=== PATIENT | female | born 1960 | race Caucasian/White ===

== ENCOUNTER → 2021-05-20 | Outpatient (CLI) | payer BC ==
[2015-05-12 11:00] VITALS: BP 100/43
[~2021-05-20] MED LIST: ACET325T9 PO; ALPR0.25 PO; ATOR20TA PO; AZIT250T6 PO; CIPR500T2 PO; DEXL60CA2 PO; DULO30CA2 PO; FLUT9.9S NS; HYDR-2761 PO; IOHEXOL 180 MG/ML 10 ML VIAL. ONE; LISI10TA16 PO; METR-34 PO; MOME17SP NS; Nicotine TD; OMEP40CA7 PO; methylPREDNISolone ACETATE 40 MG/ML VIAL. ONE; methylPREDNISolone ACETATE 80 MG/ML VIAL. ONE
--- NOTE | 2021-05-20 12:46 | RAD ---
EXAM: Bilateral knees, 3 views. HISTORY: Pain. COMPARISON: None. FINDINGS: 3 views of both knees are obtained. There is no fracture, dislocation or subluxation. There is no joint effusion. IMPRESSION: No acute osseous finding. Electronically signed by: Grace Navarro MD (05/20/2021 12:44 PM) [id number]
--- NOTE | 2021-05-20 12:53 | PDOC1 ---
INITIAL PAIN CONSULT DATE OF SERVICE: DOS: DATE: 05/20/21 TIME: 12:47 CHIEF COMPLAINT: Chief Complaint: Low back and left lower extremity pain HISTORY OF PRESENT ILLNESS: 60-year-old female presents with severe pain in the low back left lower extremity for about 5 years not the result of any specific injury or accident that she is aware but has had multiple falls and injuries over the years causing the pain to get increased in the low back and left lower extremity patient reports now it is worse in the posterior gluteus posterior lateral thigh lateral anterior thigh anteromedial thigh medial lower leg posterior lower leg into the foot on the left side patient reports its constant sharp stabbing throbbing and shooting in the back radiating the leg with numbness and tingling in the leg and foot on the left side only cramping aching and burning worse during the latter part of the leg which is been on her feet also wakes her from sleep multiple times through the night patient reports it can affect her bowel bladder control but no incontinence just increased frequency does affect her ability to walk significantly she not use any assistive devices. Patient reports she said chiropractic treatment physical therapy, and is doing exercise currently without significant reduction in pain although they do help decrease the pain slightly patient reports he taken Tylenol as well as Cymbalta the Cymbalta was not helpful Tylenol does decrease the pain she took that last yesterday evening. Patient rates her disability rating 0-10 10 being the worst is an 8 with family responsibilities 10 with recreation social activity and sexual behavior 9 with occupation 5 with self-care and life support activities specially sleeping. Patient reports about 3 to 4 weeks ago she had a "pop" in her low back and the pain in the back was better but the right leg was more painful during that time period. Patient reports significant fatigability left lower extremity but no motor loss. Patient reports no bowel or bladder incontinence. PAST MEDICAL HISTORY: PMH: Hypertension, ischemic colitis PREVIOUS SURGERIES: Past Surgical Hx: Cholecystectomy CURRENT MEDICATIONS: Current Meds: Active Scripts Medications Dose Route/Sig Max Daily Dose Days Date Category Flonase Allergy Relief (Fluticasone Propionate) 9.9 Ml [place].susp 2 Sprays NS DAILY 05/20/21 Reported Cymbalta (Duloxetine Hcl) 30 Mg Capsule.dr 1 Cap PO DAILY 05/20/21 Reported Lipitor (Atorvastatin Calcium) 20 Mg Tablet 20 Mg PO QHS 05/12/15 Rx Lisinopril 10 Mg Tablet 1 Tab PO DAILY 05/11/15 Reported Xanax (Alprazolam) 0.25 Mg Tablet 1 Tab PO BID 05/11/15 Reported Tylenol (Acetaminophen) 325 Mg Tablet 1-2 Tab PO QID 05/11/15 Reported ALLERGIES; Allergies: Coded Allergies: Penicillins (Verified Allergy, Intermediate, 03/06/14) aspirin (Verified Allergy, Intermediate, 03/06/14) doxycycline (Verified Allergy, Intermediate, 03/06/14) FAMILY HISTORY: Family Hx: Heart disease, cancers, multiple sclerosis SOCIAL HISTORY: Social Hx: Patient does not drink alcohol does not use any illegal illicit recreational drugs smokes cigarettes and has for about 40 years continues to smoke less than a pack a day. Patient is lives locally in [facility] REVIEW OF SYSTEMS: ROS: Positive for those items mentioned in history of present illness, all systems are reviewed, otherwise negative ,and are complete full and well-documented on patient's chart. PHYSICAL EXAM: VS: Blood pressure is 118/65 pulse 83 respirations 18 temperature 97.8 F height is 5 feet 5 inches weight 168 pounds PE: PHYSICAL EXAMINATION: GENERAL: The patient is awake, alert, oriented, appropriate, very pleasant in demeanor HEENT: Shows normocephalic, atraumatic. Extraocular movements are intact and sy mmetrical. Oral cavity: Mucous membranes moist and pink. Dentition is intact. NECK: Shows anterior throat supple without palpable lymphadenopathy noted. Swallow reflex symmetrical. CHEST: Shows normal on inspection. Breath sounds are clear bilaterally, coarse but no rales or rhonchi auscultated. HEART: Shows S1, S2 clear. No murmurs auscultated. ABDOMEN: Soft, nontender, nondistended, obese. No palpable organomegaly is noted. BACK: Shows spine grossly in the midline. Normal-appearing cervical lordotic curvature. There is slightly increased thoracic kyphosis, some flattening of the lumbar lordotic curvature. Lumbar paraspinous muscles show symmetrical on inspection, on palpation shows some moderate tenderness diffusely throughout the upper, middle and lower distribution of the paraspinous muscles bilaterally and also into the lower thoracic paraspinous musculature, firm and tender, but without specific trigger points, without radiation of pain. The patient has good rotational motion of the lumbar spine, both laterally as well as extension and flexion without significant difficulty. No tenderness over the spinous processes, sacrum or sacroiliac regions. EXTREMITIES: Lower extremities show deep tendon reflexes 2+ in the patellar and tendo calcaneus tendons. Motor exam is 2+ on a scale of 5 with right dorsiflexion, extension, quadriceps and hamstring flexion and 4/5 on the left. Peripheral pulses are 1+ posterior tibial. No peripheral edema is noted bilaterally. Lower extremities are warm and dry to touch, equal in color and appearance. Straight leg raise noted to be positive on the left approximate 45 degrees, decreased with knee flexion right side is negative. Gaenslen's and Galindo's maneuvers are negative bilaterally. The patient is able to stand, stand her toes without significant difficulty no loss of balance walks with a slight favoring gait does appear to favor the left lower extremity slightly but not use any assistive devices such as canes or walkers to ambulate. SKIN: Shows warm and dry, good turgor. No edema. No sores, rashes or bruising throughout. IMPRESSION: Impression: 60-year-old female with 5-year history low back left lower extremity pain in a radicular fashion Hypertension Cigarette smoking Hearing loss Plan: Options were discussed with patient including serve medical managements physical therapies interventional techniques. Patient like to pursue interventional techniques. We discussed a lumbar epidural steroid injection using description as well as anatomical models to describe the procedure. Risks were discussed including but not limited to: Bleeding, infection, possibility of epidural hematoma and subsequent neurological compromise, dural puncture, headaches, spinal cord and/or nerve damage, side effects of steroid medication, and poor results regarding pain control. Patient understands and wished to proceed. Patient return to clinic in approximate 2 weeks for follow-up, was counseled as to return appointment activity level and side effect to be aware of. Procedure is lumbar epidural steroid injection under local anesthetic using sterile prep and drape at the L4-5 level using C-arm fluoroscopic guidance in both AP and lateral views medications injected is 120 mg Depo-Medrol +10mL preservative-free normal saline and 2 mL contrast- condition at discharge is stable patient tolerated procedure well had no complications. PATY WEBB MD May 20, 2021 12:53
--- NOTE | 2021-05-20 12:54 | PDOC4 ---
Procedure Note: ICD 10 Code: ICD 10 Code: M54.16 M51.36 Procedure Note: Patient was consented for lumbar epidural steroid injection with fluoroscopic guidance. Risks were discussed including but not limited to: Bleeding, infection, possibility of epidural hematoma and subsequent neurological compromise, dural puncture, headaches, spinal cord and/or nerve damage, side effects of steroid medication, and poor results regarding pain control. Patient understands and wished to proceed. Procedure is lumbar epidural steroid injection under local anesthetic using sterile prep and drape at the L4-5 level using C-arm fluoroscopic guidance in both AP and lateral views medications injected is 120 mg Depo-Medrol +10mL preservative-free normal saline and 2 mL contrast- condition at discharge is stable patient tolerated procedure well had no complications. PATY WEBB MD May 20, 2021 12:54
== END | disposition home or self-care (01) ==
LOC: PNCL 10:18
PROVIDERS: ATTEND Anesthesiology
DX: M51.16 Intervertebral disc disorders with radiculopathy, lumbar region (principal); M25.561 Pain in right knee; M25.562 Pain in left knee; I10 Essential (primary) hypertension; K55.9 Vascular disorder of intestine, unspecified; E78.00 Pure hypercholesterolemia, unspecified; K21.9 Gastro-esophageal reflux disease without esophagitis; F41.9 Anxiety disorder, unspecified; F32.9 Major depressive disorder, single episode, unspecified; F17.210 Nicotine dependence, cigarettes, uncomplicated; Z79.899 Other long term (current) drug therapy; Z90.49 Acquired absence of other specified parts of digestive tract; Z98.890 Other specified postprocedural states; Z88.0 Allergy status to penicillin; Z88.1 Allergy status to other antibiotic agents; Z88.8 Allergy status to other drugs, medicaments and biological substances; Z72.89 Other problems related to lifestyle
CPT/HCPCS: 62323; 73562; J1030; J1040; Q9965

== ENCOUNTER → 2021-06-22 | Outpatient (CLI) | payer BC ==
[2015-05-12 11:00] VITALS: BP 100/43
[~2021-06-22] MED LIST changes: -MOME17SP NS; +MOME17SP5 NS
--- NOTE | 2021-06-22 12:05 | PDOC4 ---
Procedure Note: ICD 10 Code: ICD 10 Code: M54.16 M51.36 Procedure Note: Patient was consented for lumbar epidural steroid injection fluoroscopic guidance. Risks were discussed including but not limited to: Bleeding, infection, possibility of epidural hematoma and subsequent neurological compromise, dural puncture, headaches, spinal cord and/or nerve damage, side effects of steroid medication, and poor results regarding pain control. Patient understands and wished to proceed. Procedure is lumbar epidural steroid injection under local anesthetic using sterile prep and drape at the L4-5 level using C-arm fluoroscopic guidance in both AP and lateral views medications injected is 120 mg Depo-Medrol +10mL preservative-free normal saline and 2 mL contrast- condition at discharge is stable patient tolerated procedure well had no complications. PATY WEBB MD Jun 22, 2021 12:05
--- NOTE | 2021-06-22 12:05 | PDOC ---
Progress Note - Pain Clinic Date of Service: DOS: DATE: 06/22/21 TIME: 12:01 Diagnosis: Dx: Lumbar radiculopathy with lumbar degenerative disc disease History or Present Illness: HPI: 60-year-old female returns with back pain low back left lower extremity which is tight in the posterior gluteus posterior thigh lateral thigh anterior thigh medial thigh into the medial knee patient reports much better after last injection which was just over a month ago about 70% improvement for a few weeks significantly she was increase in activity with greater ease and comfort walking greater distances doing household activities activities try with greater ease co mfort as well as sleeping better at night reports currently is waking her from sleep about every 2-3 hours. Patient reports her pain is returning to fairly significant amount in the left knee is very painful we did get some plain films on the knees which showed no osseous abnormalities. Patient reports her pain is a 10 on scale 10 is worse with the past week 9 on average 7 its least is a 9 today is aching sharp tight shooting in the back tingling and burning the leg cramping and stabbing as well patient reports no bowel or bladder incontinence no loss of motor function with significant fatigability of the left lower extremity. Physical Exam: VS: Blood pressure is 137/85 pulse 91 respirations 18 temperature 98.2 F weight is 171 pounds PE: PHYSICAL EXAMINATION: GENERAL: The patient is awake, alert, oriented, appropriate, very pleasant in demeanor HEENT: Shows normocephalic, atraumatic. Extraocular movements are intact and symmetrical. Oral cavity: Mucous membranes moist and pink. Dentition is intact. NECK: Shows anterior throat supple without palpable lymphadenopathy noted. Swallow reflex symmetrical. CHEST: Shows normal on inspection. Breath sounds are clear bilaterally, distant but no rales or rhonchi. HEART: Shows S1, S2 clear. No murmurs auscultated. ABDOMEN: Soft, nontender, nondistended, obese. No palpable organomegaly is noted. BACK: Shows spine grossly in the midline. Normal-appearing cervical lordotic curvature. There is increased thoracic kyphosis, some flattening of the lumbar lordotic curvature. Lumbar paraspinous muscles show symmetrical on inspection, on palpation shows some moderate tenderness diffusely throughout the upper, middle and lower distribution of the paraspinous muscles, but without specific trigger points, without radiation of pain. The patient has good rotational motion of the lumbar spine, both laterally as well as extension and flexion without significant difficulty. No tenderness over the spinous processes, sacr um or sacroiliac regions. EXTREMITIES: Lower extremities show deep tendon reflexes 2+ in the patellar and tendo calcaneus tendons. Motor exam is 5 on a scale of 5 with right dorsiflexion, extension, quadriceps and hamstring flexion and 4/5 on the left. Peripheral pulses are 1+ posterior tibial. No peripheral edema is noted bilaterally. Lower extremities are warm and dry. SKIN: Shows warm and dry, good turgor. No edema. No sores, rashes or bruising throughout. Procedure: Procedure: Options were discussed with the patient. Patient's old chart was reviewed as her current medication regimen updated current review of systems updated today as well. We will proceed with a lumbar epidural steroid injection today with fluoroscopic guidance. Risks were discussed including but not limited to: Bleeding, infection, possibility of epidural hematoma and subsequent neurological compromise, dural puncture, headaches, spinal cord and/or nerve damage, side effects of steroid medication, and poor results regarding pain control. Patient understands and wished to proceed. Patient will return to the clinic in approximately 2 weeks for follow-up, was counseled as to return appointment activity level, and side effect to be aware of. Medication Injected: Med Injected: Procedure is lumbar epidural steroid injection under local anesthetic using sterile prep and drape at the L4-5 level using C-arm fluoroscopic guidance in both AP and lateral views medications injected is 120 mg Depo-Medrol +10mL preservative-free normal saline and 2 mL contrast- condition at discharge is stable patient tolerated procedure well had no complications. Condition at Discharge: Condition at Discharge: Condition at discharge stable, paced tolerated procedure well and had no complications. PATY WEBB MD Jun 22, 2021 12:04
== END | disposition home or self-care (01) ==
LOC: PNCL 10:42
PROVIDERS: ATTEND Anesthesiology
DX: M51.16 Intervertebral disc disorders with radiculopathy, lumbar region (principal); I10 Essential (primary) hypertension; E78.00 Pure hypercholesterolemia, unspecified; K21.9 Gastro-esophageal reflux disease without esophagitis; F41.9 Anxiety disorder, unspecified; F32.9 Major depressive disorder, single episode, unspecified; F17.210 Nicotine dependence, cigarettes, uncomplicated; Z79.899 Other long term (current) drug therapy; Z90.49 Acquired absence of other specified parts of digestive tract; Z98.890 Other specified postprocedural states; Z88.0 Allergy status to penicillin; Z88.1 Allergy status to other antibiotic agents; Z88.8 Allergy status to other drugs, medicaments and biological substances; Z72.89 Other problems related to lifestyle
CPT/HCPCS: 62323; J1030; J1040; Q9965

== ENCOUNTER → 2021-08-17 | Outpatient (CLI) | payer BC ==
[2015-05-12 11:00] VITALS: BP 100/43
[~2021-08-17] MED LIST changes: -IOHEXOL 180 MG/ML 10 ML VIAL. ONE; -methylPREDNISolone ACETATE 40 MG/ML VIAL. ONE; -methylPREDNISolone ACETATE 80 MG/ML VIAL. ONE
--- NOTE | 2021-08-17 14:50 | KCIC ---
EXAM: Lumbar spine MRI without contrast. HISTORY: Sciatica. Bilateral lower extremity numbness and pain. TECHNIQUE: Multiplanar, multisequence magnetic resonance imaging of the lumbar spine was performed wi thout contrast. COMPARISON: CT dated 03/05/2014. 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 No convincing spinal cord signal abnormality is seen on the [id number]. There is no clear bony remodeling. There is slight retrolisthesis of L2 on L3 and L3 on L4. There is multilevel endplate remodeling. The re are few endplate Schmorl's nodes. There are few bone islands and osseous hemangiomas. There is no suspicious osseous lesion. The conus terminates at L1. There is a tiny simple left renal cyst. Follow -up is not routinely performed for simple cysts. At T11-T12, there is a minimal disc bulge and endplate remodeling. There is no stenosis. At T12-L1, there is no stenosis. At L1-L2, there is no stenosis. At L2-L3, there is mild disc bulge and endplate remodeling. There is no stenosis. At L3-L4, there is a mild disc bulge and endplate remodeling. There is mild bilateral facet arthropat hy. There is mild retrolisthesis. There is mild right foraminal stenosis. At L4-L5, there is a minimal disc bulge and endplate remodeling. There is no stenosis. At L5-S1, there is a minimal posterior central disc protrusion. There is no stenosis. IMPRESSION: 1. 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 This results in severe central canal stenosis with r ightward deviation of the distal spinal cord. Evaluation with a dedicated thoracic spine MRI with and without contrast is recommended for characterization. 2. Degenerative change involving the lower thoracic and lumbar spine, described in detail above. This is associated with mild right foraminal stenosis at L3-L4. Electronically signed by: Grace Navarro MD (08/17/2021 2:48 PM) [id number]
== END ==
LOC: KCIC MRI 09:53
PROVIDERS: ATTEND Family Medicine
DX: M47.815 Spondylosis without myelopathy or radiculopathy, thoracolumbar region (principal); M48.8X4 Other specified spondylopathies, thoracic region; M48.04 Spinal stenosis, thoracic region; M48.061 Spinal stenosis, lumbar region without neurogenic claudication; M43.16 Spondylolisthesis, lumbar region; M48.8X6 Other specified spondylopathies, lumbar region; M51.26 Other intervertebral disc displacement, lumbar region; N28.1 Cyst of kidney, acquired; D18.09 Hemangioma of other sites; M51.46 Schmorl's nodes, lumbar region
CPT/HCPCS: 72148

== ENCOUNTER → 2021-08-25 | Outpatient (CLI) | payer BC ==
[2015-05-12 11:00] VITALS: BP 100/43
--- NOTE | 2021-08-25 15:01 | PDOC ---
Progress Note - Pain Clinic Date of Service: DOS: DATE: 08/25/21 TIME: 14:58 Diagnosis: Dx: Lumbar radiculopathy lumbar degenerative disc disease History or Present Illness: HPI: 60-year-old female returns for follow-up status post lumbar epidural steroid injection last seen June 22, 2021 patient reports she did well initially with about 70% improvement with pain returning down the low back and especially left lower extremity patient did have a new MRI scan which was ordered by her primary care physician we reviewed that with her today showing an extra medullary mass at the central canal at T11 measuring 2.6 cm in maximum dimension resulting in severe central canal stenosis with a rightward deviation of the distal spinal cord recommending evaluation with contrast and without for thoracic MRI which we will order for her. Patient reports still pain in the mid back low back and into the left lower extremity most significantly in the posterior thigh lateral thigh anterior thigh medial thigh groin into the medial lower leg and into the foot patient reports is worse with walking standing change positions better with sitting or laying down the pain is 8 on scale 10 is worst over the past week 6 on average 4 to [place] is a 6 today patient describes aching shooting and constant in the leg and back with ambulation and standing. Patient reports no bowel or bladder incontinence. Physical Exam: VS: Blood pressure is 126/79 pulse 93 respirations 18 temperature 98.4 F height 5 feet 5 inches weight is 173 pounds. PE: PHYSICAL EXAMINATION: GENERAL: The patient is awake, alert, oriented, appropriate, very pleasant in demeanor, patient accompanied by her . HEENT: Shows normocephalic, atraumatic. Extraocular movements are intact and symmetrical. Oral cavity: Mucous membranes moist and pink. Dentition is intact. NECK: Shows anterior throat supple without palpable lymphadenopathy noted. Swallow reflex symmetrical. CHEST: Shows normal on inspection. Breath sounds are clear bilaterally, distant but no rales or rhonchi auscultated. HEART: Shows S1, S2 clear. No murmurs auscultated. ABDOMEN: Soft, nontender, nondistended. No palpable organomegaly is noted. No rebound or guarding demonstrated. BACK: Shows spine grossly in the midline. Normal-appearing cervical lordotic curvature. There is slightly increased thoracic kyphosis, some minor flattening of the lumbar lordotic curvature. Lumbar paraspinous muscles show symmetrical on inspection, on palpation shows some moderate tenderness diffusely throughout the upper, middle and lower distribution of the paraspinous muscles without specific trigger points, without radiation of pain. The patient has good rotational motion of the lumbar spine, both laterally as well as extension and flexion without significant difficulty. No tenderness over the spinous processes, sacrum or sacroiliac regions. EXTREMITIES: Lower extremities show deep tendon reflexes 2+ in the patellar and tendo calcaneus tendons. Motor exam is 5 on a scale of 5 with right dorsiflexion, extension, quadriceps and hamstring flexion and 4/5 on the left. Peripheral pulses are 1+ posterior tibial. 1+ peripheral edema is noted bilaterally. Lower extremities are warm and dry. SKIN: Shows warm and dry, good turgor. No edema. No sores, rashes or bruising throughout. Procedure: Procedure: Options were discussed with patient. Patient's old chart was reviewed as was her current medication regimen updated current review of systems updated today as well. We will proceed with ordering of MRI of thoracic spine with and without contrast as per recommendation for evaluation of T11 extra medullary mass. Patient will follow up once MRI scan is completed for discussion and further plan at that time Medication Injected: Med Injected: None Condition at Discharge: Condition at Discharge: Condition at discharge is stable. PATY WEBB MD Aug 25, 2021 15:01
== END | disposition home or self-care (01) ==
LOC: PNCL 13:21
PROVIDERS: ATTEND Anesthesiology
DX: M51.16 Intervertebral disc disorders with radiculopathy, lumbar region (principal); I10 Essential (primary) hypertension; E78.00 Pure hypercholesterolemia, unspecified; K21.9 Gastro-esophageal reflux disease without esophagitis; F41.9 Anxiety disorder, unspecified; F32.9 Major depressive disorder, single episode, unspecified; F17.210 Nicotine dependence, cigarettes, uncomplicated; Z90.49 Acquired absence of other specified parts of digestive tract; Z98.890 Other specified postprocedural states; Z79.899 Other long term (current) drug therapy; Z72.89 Other problems related to lifestyle; Z88.0 Allergy status to penicillin; Z88.1 Allergy status to other antibiotic agents; Z88.8 Allergy status to other drugs, medicaments and biological substances
CPT/HCPCS: 99212; G0463

== ENCOUNTER → 2021-09-01 | Outpatient (CLI) | payer BC ==
[2015-05-12 11:00] VITALS: BP 100/43
[~2021-09-01] MED LIST changes: +GADOTERATE 7.5 MMOL/15ML VIAL. IVP ONE
--- NOTE | 2021-09-01 11:30 | KCIC ---
MRI thoracic spine without and with contrast Contrast: 14 mL Clariscan gadolinium intravenous contrast. HISTORY: Thoracic spinal mass. Sciatica. Bilateral lower extremity numbness and pain. COMPARISON: MRI lumbar spine August 17, 2021 FINDINGS: Thoracic vertebral body height and alignment is intact. Diffuse degenerative disc desiccati on and disc height loss throughout the thoracic spine there is some scattered shallow disc bulges at the mid to lower thoracic spine. These contribute and no spinal canal or neural foraminal stenosis. At the T10 and T11 vertebral level there is a intradural extramedullary heterogeneous T2 weighted hyp erintense solid mass with hypervascular contrast enhancement there are some tiny areas of absent cont rast enhancement internally which could represent some areas of cystic degeneration or necrosis of th e mass. The mass fills most of the dural sac and displaces the thoracic spinal cord to the right whic h is markedly compressed and deformed along the right lateral dural sac with a thickness of the spina l cord down to 2 to 3 mm. The mass measures 3.1 cm craniocaudal by 1.5 cm transverse by 1.3 cm AP. Th ere is no obvious enhancing dural tail of this mass to confirm an origin from the dura, the mass has broad areas of contact circumferentially about the dural sac. No additional intradural masses evident or thickened dura or leptomeningeal enhancement. No osseous masses of the thoracic spine. No syringo hydromyelia of the thoracic spinal cord above or below the mass evident. Conus terminates at the L1 l umbar vertebral level. IMPRESSION: 1. 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 This mass displaces the spin al cord to the right which is compressed and markedly deformed compressed by the mass. This may repre sent a large peripheral nerve sheath tumor. A meningioma is a secondary consideration although there is no definite dural base of attachment by this mass, the mass does have extensive contact with the s urrounding dural sac. An intradural extramedullary metastatic mass lesion is also a possibility. Give n that this mass does not involve the conus and is not centrally located within the spinal cord, an e pendymoma or hemangioblastoma is felt to be much less likely. 2. Thoracic degenerative disc disease. No spinal canal stenosis. See above. Electronically signed by: Wero Grace MD (09/01/2021 11:27 AM) [email or web address]
== END | disposition home or self-care (01) ==
LOC: KCIC MRI 08:42
PROVIDERS: ATTEND Anesthesiology
DX: M54.32 Sciatica, left side (principal); M54.31 Sciatica, right side; M51.34 Other intervertebral disc degeneration, thoracic region; I10 Essential (primary) hypertension; E78.00 Pure hypercholesterolemia, unspecified; K21.9 Gastro-esophageal reflux disease without esophagitis; F41.9 Anxiety disorder, unspecified; F32.9 Major depressive disorder, single episode, unspecified; F17.210 Nicotine dependence, cigarettes, uncomplicated; Z90.49 Acquired absence of other specified parts of digestive tract; Z98.890 Other specified postprocedural states; Z72.89 Other problems related to lifestyle; Z88.0 Allergy status to penicillin; Z88.1 Allergy status to other antibiotic agents; Z88.8 Allergy status to other drugs, medicaments and biological substances
CPT/HCPCS: 72157; A9575

== ENCOUNTER → 2021-09-04 | Outpatient (CLI) | payer BC ==
[2015-05-12 11:00] VITALS: BP 100/43
[~2021-09-04] MED LIST changes: -GADOTERATE 7.5 MMOL/15ML VIAL. IVP ONE; +METH4TAB6 PO; +VENTOLIN HFA18 GM INH
--- NOTE | 2021-09-04 14:24 | EKG ---
[facility] [address] [place] [address] Test Date: 2021-09-04 Test Time: 14:24:46 Pat Name: RATNA SALAS Department: Room: Gender: F Equine Breeder: KYRA : 1960 Requested By: JAQUELINE ESCAMILLA Order Number: [id number] Reading MD: Raffi Whalen MD Measurements Intervals [place] Rate: 86 P: 21 NM: 174 QRS: 55 QRSD: 86 T: 51 QT: 334 QTc: 402 Interpretive Statements SINUS RHYTHM Electronically Signed On 09-07-2021 9:45:32 [employer]LLSTAND ATTENDANT by Raffi Whalen MD
[2021-09-04 14:37] LABS: BASO # 0.2 x10^3/uL (0.0-0.2); BASO % 1 % (0-3); EOS % 0 % (0-3); HEMATOCRIT 45.5 % (36.0-47.0); HEMOGLOBIN 14.7 g/dL (12.0-15.5); LYMPH # 3.2 x10^3/uL (1.0-4.8); LYMPH % 16 % (24-48); MEAN CORPUSCULAR HEMOGLOBIN 30 pg (25-35); MEAN CORPUSCULAR HGB CONC 32 g/dL (31-37); MEAN CORPUSCULAR VOLUME 92 fL (79-100); MONO # 0.9 x10^3/uL (0.0-1.1); MONO % 5 % (0-9); NEUT # 15.3 x10^3/uL (1.8-7.7); NEUT % 78 % (31-73); PLATELET COUNT 484 x10^3/uL (140-400); RED BLOOD COUNT 4.92 x10^6/uL (3.50-5.40); RED CELL DISTRIBUTION WIDTH 14.9 % (11.5-14.5); WHITE BLOOD COUNT 19.6 x10^3/uL (4.0-11.0)
[2021-09-04 14:46] LABS: PROTHROMBIN TIME PATIENT 12.4 SEC (11.7-14.0)
[2021-09-04 14:50] LABS: ALBUMIN 3.5 g/dL (3.4-5.0); ALBUMIN/GLOBULIN RATIO 0.9 (1.0-1.7); CALCIUM 9.2 mg/dL (8.5-10.1); CREATININE 0.9 mg/dL (0.6-1.0); GFR 63.4; POTASSIUM 4.9 mmol/L (3.5-5.1); TOTAL BILIRUBIN 0.2 mg/dL (0.2-1.0); TOTAL PROTEIN 7.2 g/dL (6.4-8.2)
[2021-09-04 16:34] LABS: % LYMPHS 22 % (24-48); % MONOS 3 % (0-10); % SEGS 75 % (35-66); BURR CELLS PRESENT; PLT ESTIMATE ADEQUATE (ADEQUATE)
--- NOTE | 2021-09-07 09:00 | NUR ---
Faxed pretesting labs to Dr Irvin's office. Spoke with Aixa who will make sure Bing sees the results.
== END ==
LOC: SURGPAT 13:48
PROVIDERS: ATTEND Neurological Surgery
DX: Z01.818 Encounter for other preprocedural examination (principal); D36.10 Benign neoplasm of peripheral nerves and autonomic nervous system, unspecified; M48.04 Spinal stenosis, thoracic region
CPT/HCPCS: 36415; 80053; 85007; 85025; 85610; 85730; 87641; 93005

== ENCOUNTER 2021-09-08 07:27 | Inpatient (IN) | payer BC ==
[2021-09-04 14:41] VITALS: BP 134/68
--- NOTE | 2021-09-07 15:16 | PREOP HP ---
DATE OF SERVICE: 09/08/2021 PREOPERATIVE HISTORY AND PHYSICAL HISTORY OF PRESENT ILLNESS: The patient is a pleasant 60-year-old who is having difficulty with mid and lower back pain along with left buttock pain and posterolateral thigh and leg pain. She said the problem has been present for more than 5 years, but after she had COVID in recent months, she said the problem became much worse. She says she is unsteady and has difficulty walking. She feels that there is weakness in her left leg. She rates her pain as 8/10. Lying down, standing, walking or lifting increases her pain. She says that ice helps her to a degree as well as sitting and changing positions. She takes Tylenol as needed. Recently, she has been on oral steroids, which she said did help her. She does use a lumbar brace as well as a left knee brace. She has been recently treated with epidural steroid injections because of her lower back pain. A T10-T11 mass was seen. An MRI of the thoracic spine was obtained and she was referred to me. CURRENT MEDICATIONS: Flonase, alprazolam, atorvastatin, lisinopril, Tylenol. PAST MEDICAL HISTORY: Hypertension, colitis, ulcers. PAST SURGICAL HISTORY: Cholecystectomy in 2013. FAMILY HISTORY: Alzheimer's disease, cancer, heart disease, hypertension. SOCIAL HISTORY: Manufacturing Laborer. . Smokes 1 pack per day for 20 years. Never drinks alcohol. ALLERGIES: ASPIRIN, PENICILLIN, LATEX, CIPRO, DOXYCYCLINE. REVIEW OF SYSTEMS: A 12-point review of systems was performed and is noncontributory except that mentioned above. PHYSICAL EXAMINATION: GENERAL: Alert, pleasant, in no acute distress. HEENT: Head is normocephalic, atraumatic. SKIN: Warm and dry. MUSCULOSKELETAL: Lumbar paraspinal muscle bulk is normal as well as thoracic paraspinal muscle bulk is normal, restricted range of motion of the lumbar spine, normal range of motion of the lower extremities bilaterally, there is tenderness in the lower lumbar spine extending down to the sacrum. There is no thoracolumbar tenderness. EXTREMITIES: No clubbing, cyanosis or edema. NEUROLOGIC: Alert and oriented x 3. Strength is5 /5 except for left hip flexor, which was 4/5. Quadriceps was 4/5. On sensory testing, there is decreased light touch sensation in the anterior thigh and anterior leg. Reflexes at the knees were absent. Straight leg raising was negative bilaterally. She is very unsteady with gait, favoring her left leg. IMAGING: I reviewed the lumbar MRI scan. There is a large mass within the spinal canal, which appears to be intradural extending from T10-T11. It measures 3.1 x 1.5 x 1.3 cm. It appears to be a large peripheral nerve sheath tumor or a meningioma. A spinal cord is compressed markedly on the right side. ASSESSMENT AND PLAN: She has a large intradural mass at T10-T11. She is deteriorating slowly neurologically. I explained to her that she will require a laminectomy and removal of this mass. I used models and discussed this in detail with the patient and her daughter. I explained that paralysis was possible with this type of surgery. I discussed needing to sacrifice nerve roots. I explained the nature of the surgery and the risk. I discussed the expected postoperative course. She understands and would strongly like to go ahead with the surgery. PEDRO LUIS DR: Helen TID: [id number]
[2021-09-08] VITALS (11 sets, daily range): BP systolic 93–122; BP diastolic 50–71
[~2021-09-08] VITALS: Ht 165.1 cm; Wt 77.2 kg
[~2021-09-08 07:27] MED LIST changes: +BUPIVACAINE-EPI 0.5% 30 ML VIAL KIT. ONE; +DEXAMETHASONE SOD PHOS 4 MG/ML VIAL ONE; +GELATIN SPONGE SIZE 100. ONE; +HYDROmorphone 2 MG/ML INJ. IVP PRN; +IV RINGERS,LACTATED 1000ML 1,000 ML IV SCH; +KETAMINE HCL IN NACL, ISO-OSM 50 MG/5 ML SYRINGE ONE; +KETOROLAC 60 MG/2 ML VIAL. ONE; +LIDOCAINE 2% PF 5 ML VIAL. ONE; +MIDAZOLAM HCL/PF 2 MG/2 ML VIAL. ONE; +MORPHINE SULFATE 2 MG/ML INJ. IVP PRN; +ONDANSETRON PF 4 MG/2 ML VIAL. ONE; +PHENYLEPHRINE 10 MG/ML VIAL. ONE; +PROCHLORPERAZINE 10 MG/2 ML VIAL. IVP PRN; +PROPOFOL 10 MG/ML (20ML) VIAL. IV ONE; +PROPOFOL 50 ML IV ONE; +REMIFENTANIL 1 MG VIAL. IV ONE; +SEVOFLURANE > 120 MINUTES. IH ONE; +SUCCINYLCHOLINE 200 MG/10 ML VIAL. ONE; +THROMBIN TOPICAL 20,000 UNIT SPRAY.SYRN KIT TP ONE; +VANCOMYCIN 1 GM in IV NORMAL SALINE 1000ML BAG 1,000 ML IRR PRN; +VANCOMYCIN 1 GM in IV NORMAL SALINE 250ML 250 ML IV PRN; +fentaNYL PF VIAL 100 MCG/2 ML VIAL IVP PRN; +fentaNYL PF VIAL 100 MCG/2 ML VIAL ONE
[2021-09-08] MEDS ORDERED: PROPOFOL 10 MG/ML (20ML) VIAL. IV ONE (08:21)
[2021-09-08] MEDS: VANCOMYCIN 1 GM in IV NORMAL SALINE 1000ML BAG 1,000 ML IRR PRN ×2 (09:00→10:19)
[2021-09-08] MEDS ORDERED: PROPOFOL 50 ML IV ONE ×4 (10:34→12:27)
[2021-09-08] MEDS ORDERED: REMIFENTANIL 1 MG VIAL. IV ONE (11:22)
[2021-09-08] MEDS ORDERED: PHENYLEPHRINE 10 MG/ML VIAL. ONE (11:57)
[2021-09-08] MEDS ORDERED: ALBUMIN HUMAN 5% 500 ML IV ONE (12:57)
[2021-09-08] MEDS ORDERED: HYDROmorphone 2 MG/ML INJ. ONE (13:05)
[2021-09-08] MEDS ORDERED: GELATIN SPONGE SIZE 100. ONE (13:30)
[2021-09-08] MEDS ORDERED: THROMBIN TOPICAL 20,000 UNIT SPRAY.SYRN KIT TP ONE (13:31)
[2021-09-08] MEDS ORDERED: NALOXONE 0.4 MG/ML VIAL. IV PRN (15:45)
[2021-09-08] MEDS ORDERED: MAG HYDROX/ALUMINUM HYD/SIMETH 30 ML ORAL.SUSP PO PRN (15:45)
[2021-09-08] MEDS ORDERED: fentaNYL PF VIAL 100 MCG/2 ML VIAL IVP PRN (15:45)
[2021-09-08] MEDS ORDERED: MAGNESIUM HYDROXIDE 2,400 MG/30 ML ORAL.SUSP. PO PRN (15:45)
[2021-09-08] MEDS ORDERED: ACETAMINOPHEN 325 MG TABLET. PO PRN (15:45)
[2021-09-08] MEDS ORDERED: ONDANSETRON PF 4 MG/2 ML VIAL. IVP PRN (15:45)
[2021-09-08] MEDS ORDERED: CALCIUM CARBONATE 500 MG TAB.CHEW PO PRN (15:45)
[2021-09-08] MEDS ORDERED: diphenhydrAMINE HCL 25 MG CAPSULE PO PRN (15:45)
[2021-09-08] MEDS ORDERED: 0.9 % SODIUM CHLORIDE 10 ML DISP.SYRIN. IV PRN (15:45)
[2021-09-08] MEDS ORDERED: NON FORMULARY ITEM (Albuterol Sulfate (Ventolin Hfa Inhaler) 2 PUFF) INH SCH (16:00)
[2021-09-08] MEDS ORDERED: fentaNYL PF VIAL 100 MCG/2 ML VIAL ONE (16:10)
[2021-09-08] MEDS: fentaNYL PF VIAL 100 MCG/2 ML VIAL IVP PRN ×2 (16:12→16:33)
--- NOTE | 2021-09-08 17:30 | NUR ---
RECEIVED FROM RECOVERY. SHE IS ALERT AND ORIENTED X4. SHE HAS GOOD SENSATION BILATERAL LOWER EXTREMITIES; LEFT LEG IS IS SLIGHTLY WEAKER THAN RIGHT LEG. ENGRAVER ARE EQUAL AND STRONG. FAMILY AT BEDSIDE. DRESSING TO THE MID BACK IS SHADOWED AND DRAIN IS ON THE RIGHT SIDE OF INCISION. DENIES NAUSEA AND PAIN AT THIS TIME.
[2021-09-08] MEDS ORDERED: ALBUTEROL SULFATE 2.5 MG/3 ML NEBU. NEB PRN (18:30)
--- NOTE | 2021-09-08 19:50 | OP ---
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 Note, this was a schwannoma by frozen section. OPERATION PERFORMED: T9, T10, T11, T12 laminectomy with intradural exploration and gross total resection of thoracic mass and rain placement. The operation was done with multimodality monitoring including EMG, SSEP, fluoroscopy to motor evoked potentials. SURGEON: Aaron Irvin M.D. PLASTICS AND COMPOSITES INSPECTOR: ANTWON Montanez, assisted with the surgery. She assisted with the exposure, the removal of the mass as well as the closure. OPERATIVE INDICATIONS: The patient is a pleasant 60-year-old who has developed slowly progressive weakness in her lower extremities along with significant pain. Recent MRI scan of the lumbar spine looked essentially normal; however, at the superior aspect of the MRI, there was some suggestion of a mass and thoracic MRI scan revealed a large mass on the left side of the canal markedly compressing and deviating the spinal cord to the right. This had the appearance of either a schwannoma or a meningioma and I recommended surgery to decompress the mass. I spoke with her about the surgery, the risks, the technique and expected postoperative course and she wished me to go ahead. DESCRIPTION OF PROCEDURE: Following general endotracheal anesthesia, the patient was positioned prone on the Romeo table. Her thoracic region was prepped and draped in standard fashion. IKER hose and AV impulse boots were applied for DVT prophylaxis. The microscope was draped, fluoroscopy was draped and brought into the field. Monitoring was established using fluoroscopic guidance with careful counting. An incision was made from T9 through T12. I dissected down through skin and subcutaneous tissue, reflected the paraspinal muscles and placed self-retaining retractors and brought in the microscope. I used the rongeur to remove the spinous processes followed by the high speed air drill to thin the bone and then Kerrisons to perform a laminectomy, which extended from T9 through T11. I did work farther superiorly and worked into the inferior aspect of the T8 lamina and worked inferiorly to the T12-L1 region, fully decompressing the entire region. I placed large cottonoids around the edges of the bony exposure and then using an angled dural guide and #11 blade, opened the dura inferiorly to superiorly after making a small dural opening with a #11 blade and using the blunt hook. I used 4-0 Nurolon stitches to tack the dura back. I realized that the tumor extended slightly beneath our exposure and I trimmed the bone inferiorly and carried the opening further inferiorly to completely surround the tumor. There was a large nerve root, which crossed over the tumor and I began by coagulating portions of the tumor to begin to shrink it. I gently dissected nerves and vessels off of the tumor. I used a CUSA and began to core out the tumor; however, it was exceedingly vascular and I spent some time obtaining hemostasis at this point. I continued to shrink the tumor. I used a CUSA handpiece with Bovie connection, which allowed me to suck away tumor as well as coagulate. In this way, I gently began to work down through the mass ensuring it. I freed up the nerve root and gently passed it beneath the tumor. I continued to shrink the tumor and worked the tumor gently out thoroughly as spinal cord was markedly compressed over to the right and I was very careful to just gradually remove this pressure and peel the tumor away safely. That was one portion of the tumor, which was densely adherent to vessels adjacent to the spinal cord and I had to work through these and then carefully remove that residual tumor. This accomplished, then I removed the entire tumor. I obtained frozen section diagnosis, which was a schwannoma. I irrigated copiously. I then began to close the durotomy with interrupted 4-0 Nurolon. Prior to complete closure, I did lay Gelfoam along the lateral gutters to help with hemostasis. Once the dura was completely closed, I worked for some time to obtain excellent hemostasis and then put dural sealant over the durotomy. Following this, then I closed the wound with absorbable sutures. I did leave a drain in place, which was brought out through a separate stab incision. The skin was closed with skin raymond. I felt the surgery went very well. DIMITRY/NOE DR: Clay TID: [id number] DAVID
[2021-09-08] MEDS: ATORVASTATIN CALCIUM 20 MG TABLET PO SCH (21:34)
[2021-09-08] MEDS: ALPRAZolam 0.25 MG TABLET PO SCH (21:34)
[2021-09-08] MEDS: DOCUSATE SODIUM 100 MG CAPSULE. PO SCH (21:34)
[2021-09-08] MEDS: POTASSIUM CL 20MEQ D5-0.45NACL 1,000 ML IV SCH (21:35)
[2021-09-09] MEDS: METHOCARBAMOL 750 MG TABLET PO PRN ×3 (01:28→17:21)
[2021-09-09] MEDS: oxyCODONE/APAP 5/325 1 TAB TABLET PO PRN ×5 (01:29→21:38)
[2021-09-09 03:00] VITALS: BP 116/63
[2021-09-09 07:00] VITALS: BP 97/52
[2021-09-09] MEDS: ALPRAZolam 0.25 MG TABLET PO SCH ×2 (08:57→21:33)
[2021-09-09] MEDS: DOCUSATE SODIUM 100 MG CAPSULE. PO SCH ×2 (08:58→21:34)
[2021-09-09] MEDS: LISINOPRIL 10 MG TABLET PO SCH (08:59)
[2021-09-09] MEDS: FLUTICASONE 50MCG/NASAL SPRAY 16GM BOTTLE. NS SCH (09:00)
[2021-09-09 10:56] VITALS: BP 102/55
[2021-09-09 15:25] VITALS: BP 121/76
[2021-09-09] MEDS: POTASSIUM CL 20MEQ D5-0.45NACL 1,000 ML IV SCH (18:25)
[2021-09-09] MEDS: ATORVASTATIN CALCIUM 20 MG TABLET PO SCH (21:34)
--- NOTE | 2021-09-09 22:39 | PDOC ---
PROGRESS NOTES Date of Service DATE: 09/09/21 TIME: 22:36 Subjective Subjective Patient seen at 1400 POD #1 T9, T10, T11, T12 laminectomy with intradural exploration and gross total resection of thoracic mass up in chair incision pain, controlled with medication overall she feels improved Objective Objective Vital Signs Date Time Temp Pulse Resp B/P (MAP) Pulse Ox O2 Delivery O2 Flow Rate FiO2 09/09/21 21:38 20 Room Air 09/09/21 15:25 97.6 71 121/76 (91) 96 97.6 09/08/21 15:37 10 Intake and Output 09/09/21 07:00 Intake Total 5360 ml Output Total 645 ml Balance 4715 ml Intake Oral 1860 ml IV Total 3500 ml Output Urine Total 300 ml Drainage Total 20 ml Estimated Blood Loss 150 ml Other 175 ml # Voids 3 Physical Exam General: Alert, Oriented X3, Cooperative, No acute distress MUSCULOSKELETAL: Other (DUNCAN) Skin: Other (dressing dry and intact, drain removed without difficulty) Plan Plan of Care likely nerve sheath tumor, final path pending PT activity as tolerated possible dc home tomorrow Comment Review of Relevant I have reviewed the following items [email or web address] (where applicable) has been applied. Medications Current Medications Fentanyl Citrate (Fentanyl 2ml Vial) 25 mcg PRN Q5MIN PRN IVP MILD PAIN 1-3; Start 09/08/21 at 06:00; Stop 09/08/21 at 18:00; Status DC Fentanyl Citrate (Fentanyl 2ml Vial) 50 mcg PRN Q5MIN PRN IVP MODERATE PAIN 4-6 Last administered on 09/08/21at 16:33; Start 09/08/21 at 06:00; Stop 09/08/21 at 18:00; Status DC Morphine Sulfate (Morphine Sulfate) 1 mg PRN Q10MIN PRN IVP SEVERE PAIN 7-10; Start 09/08/21 at 06:00; Stop 09/08/21 at 18:00; Status DC Ringer's Solution 1,000 ml @ 30 mls/hr Q24H IV Last administered on 09/08/21at 08:04; Start 09/08/21 at 06:00; Stop 09/08/21 at 17:59; Status DC Hydromorphone HCl (Dilaudid) 0.5 mg PRN Q10MIN PRN IVP SEVERE PAIN 7-10, 2nd CHOICE; Start 09/08/21 at 06:00; Stop 09/08/21 at 18:00; Status DC Prochlorperazine Edisylate (Compazine) 5 mg PACU PRN PRN IVP NAUSEA, MRX1; Start 09/08/21 at 06:00; Stop 09/08/21 at 18:00; Status DC Vancomycin HCl 1 gm/Sodium Chloride 1,000 ml @ 1,000 mls/hr 1X PREOP PRN IRR FOR USE DURING PROCEDURE; Start 09/07/21 at 11:00; Status Cancel Vancomycin HCl 1 gm/Sodium Chloride 1,000 ml @ 1,000 mls/hr 1X PREOP PRN IRR FOR USE DURING PROCEDURE Last administered on 09/08/21at 10:19; Start 09/08/21 at 06:00; Stop 09/08/21 at 15:00; Status DC Vancomycin HCl 1 gm/Sodium Chloride 250 ml @ 250 mls/hr PREOP PRN PRN IV PRIOR TO PROCEDURE; Start 09/08/21 at 06:00; Stop 09/08/21 at 15:00; Status DC Gelatin (Gelfoam Size 100) 1 each STK-MED ONCE .ROUTE Last administered on 09/08/21at 10:19; Start 09/08/21 at 06:34; Stop 09/08/21 at 06:34; Status DC Bupivacaine HCl/ Epinephrine Bitart (Sensorcain-Epi 0.5% Kit) 30 ml STK-MED ONCE .ROUTE Last administered on 09/08/21at 10:19; Start 09/08/21 at 06:34; Stop 09/08/21 at 06:34; Status DC Ketorolac Tromethamine (Toradol Im) 60 mg STK-MED ONCE .ROUTE Last administered on 09/08/21at 10:19; Start 09/08/21 at 06:34; Stop 09/08/21 at 06:34; Status DC Thrombin 20,000 unit STK-MED ONCE TP Last administered on 09/08/21at 10:19; Start 09/08/21 at 06:34; Stop 09/08/21 at 06:35; Status DC Propofol (Diprivan) 200 mg STK-MED ONCE IV ; Start 09/08/21 at 05:49; Stop 09/08/21 at 07:49; Status DC Lidocaine HCl (Lidocaine Pf 2% Vial) 5 ml STK-MED ONCE .ROUTE ; Start 09/08/21 at 05:49; Stop 09/08/21 at 07:49; Status DC Ondansetron HCl (Zofran) 4 mg STK-MED ONCE .ROUTE ; Start 09/08/21 at 05:49; Stop 09/08/21 at 07:49; Status DC Phenylephrine HCl (Robert-Synephrine Inj) 10 mg STK-MED ONCE .ROUTE ; Start 09/08/21 at 05:49; Stop 09/08/21 at 07:49; Status DC Propofol 50 ml @ As Directed STK-MED ONCE IV ; Start 09/08/21 at 05:49; Stop 09/08/21 at 07:49; Status DC Dexamethasone Sodium Phosphate (Decadron) 4 mg STK-MED ONCE .ROUTE ; Start 09/08/21 at 05:49; Stop 09/08/21 at 07:49; Status DC Sevoflurane (Ultane) 90 ml STK-MED ONCE IH ; Start 09/08/21 at 05:49; Stop 09/08/21 at 07:49; Status DC Ketamine HCl (Ketamine) 50 mg STK-MED ONCE .ROUTE ; Start 09/08/21 at 05:49; Stop 09/08/21 at 07:49; Status DC Fentanyl Citrate (Fentanyl 2ml Vial) 100 mcg STK-MED ONCE .ROUTE ; Start 09/08/21 at 05:49; Stop 09/08/21 at 07:49; Status DC Succinylcholine Chloride (Anectine) 200 mg STK-MED ONCE .ROUTE ; Start 09/08/21 at 05:49; Stop 09/08/21 at 07:49; Status DC Remifentanil HCl (Ultiva) 1 mg STK-MED ONCE IV ; Start 09/08/21 at 05:49; Stop 09/08/21 at 07:49; Status DC Midazolam HCl (Versed) 2 mg STK-MED ONCE .ROUTE ; Start 09/08/21 at 06:49; Stop 09/08/21 at 08:50; Status DC Propofol (Diprivan) 200 mg STK-MED ONCE IV ; Start 09/08/21 at 08:21; Stop 09/08/21 at 10:22; Status DC Propofol 50 ml @ As Directed STK-MED ONCE IV ; Start 09/08/21 at 10:34; Stop 09/08/21 at 12:34; Status DC Propofol 50 ml @ As Directed STK-MED ONCE IV ; Start 09/08/21 at 10:34; Stop 09/08/21 at 12:34; Status DC Propofol 50 ml @ As Directed STK-MED ONCE IV ; Start 09/08/21 at 10:34; Stop 09/08/21 at 12:34; Status DC Remifentanil HCl (Ultiva) 1 mg STK-MED ONCE IV ; Start 09/08/21 at 11:22; Stop 09/08/21 at 13:23; Status DC Gelatin (Gelfoam Size 100) 1 each STK-MED ONCE .ROUTE Last administered on 09/08/21at 13:34; Start 09/08/21 at 13:30; Stop 09/08/21 at 13:31; Status DC Thrombin 20,000 unit STK-MED ONCE TP Last administered on 09/08/21at 13:34; Start 09/08/21 at 13:31; Stop 09/08/21 at 13:31; Status DC Phenylephrine HCl (Robert-Synephrine Inj) 10 mg STK-MED ONCE .ROUTE ; Start 09/08/21 at 11:57; Stop 09/08/21 at 13:57; Status DC Propofol 50 ml @ As Directed STK-MED ONCE IV ; Start 09/08/21 at 12:27; Stop 09/08/21 at 14:28; Status DC Albumin Human 500 ml @ As Directed STK-MED ONCE IV ; Start 09/08/21 at 12:57; S top 09/08/21 at 14:57; Status DC Hydromorphone HCl (Dilaudid) 2 mg STK-MED ONCE .ROUTE ; Start 09/08/21 at 13:05; Stop 09/08/21 at 15:05; Status DC Alprazolam (Xanax) 0.25 mg BID PO Last administered on 09/09/21at 21:33; Start 09/08/21 at 21:00 Atorvastatin Calcium (Lipitor) 20 mg QHS PO Last administered on 09/09/21at 21:34; Start 09/08/21 at 21:00 Lisinopril (Prinivil) 10 mg DAILY PO Last administered on 09/09/21at 08:59; Start 09/09/21 at 09:00 Non-Formulary Medication (Albuterol Sulfate (Ventolin Hfa Inhaler)) 2 puff Q4HRS INH ; Start 09/08/21 at 16:00; Status UNV Fluticasone Propionate (Flonase) 2 spray DAILY NS ; Start 09/09/21 at 09:00 Fentanyl Citrate (Fentanyl 2ml Vial) 50 mcg PRN Q2HR PRN IVP PAIN; Start 09/08/21 at 15:45 Acetaminophen (Tylenol) 650 mg PRN Q6HRS PRN PO MILD PAIN / TEMP > 100.3'F; Start 09/08/21 at 15:45 Al Hydroxide/Mg Hydroxide (Mylanta Plus Xs) 30 ml PRN Q3HRS PRN PO HEARTBURN / GAS; Start 09/08/21 at 15:45 Calcium Carbonate/ Glycine (Tums) 500 mg PRN Q3HRS PRN PO INDIGESTION; Start 09/08/21 at 15:45 Diphenhydramine HCl (Benadryl) 25 mg PRN Q6HRS PRN PO ITCHING; Start 09/08/21 at 15:45 Naloxone HCl (Narcan) 0.1 mg PRN Q2MIN PRN IV SEE COMMENTS; Start 09/08/21 at 15:45 Sodium Chloride (Normal Saline Flush) 3 ml QSHIFT PRN IV AFTER MEDS AND BLOOD DRAWS; Start 09/08/21 at 15:45 Potassium Chloride/Dextrose/ Sod Cl 1,000 ml @ 75 mls/hr [id number] IV Last administered on 09/08/21at 21:35; Start 09/08/21 at 15:45 Oxycodone/ Acetaminophen (Percocet 5/325) 1 tab PRN Q4HRS PRN PO MODERATE PAIN Last administered on 09/09/21at 08:58; Start 09/08/21 at 15:45 Oxycodone/ Acetaminophen (Percocet 5/325) 2 tab PRN Q4HRS PRN PO SEVERE PAIN Last administered on 09/09/21at 21:38; Start 09/08/21 at 15:45 Methocarbamol (Robaxin) 750 mg TID PRN PO MUSCLE SPASMS Last administered on 09/09/21at 17:21; Start 09/08/21 at 15:45 Docusate Sodium (Colace) 100 mg BID PO Last administered on 09/09/21at 21:34; S tart 09/08/21 at 21:00 Magnesium Hydroxide (Milk Of Magnesia) 2,400 mg PRN Q12HR PRN PO CONSTIPATION; Start 09/08/21 at 15:45 Ondansetron HCl (Zofran) 4 mg PRN Q6HRS PRN IVP NAUESA, 1ST CHOICE; Start 09/08/21 at 15:45 Fentanyl Citrate (Fentanyl 2ml Vial) 100 mcg STK-MED ONCE .ROUTE ; Start 09/08/21 at 16:10; Stop 09/08/21 at 16:10; Status DC Albuterol Sulfate (Ventolin Neb Soln) 2.5 mg PRN Q4HRS PRN NEB SHORTNESS OF BREATH; Start 09/08/21 at 18:30 Active Scripts Active Lipitor (Atorvastatin Calcium) 20 Mg Tablet 20 Mg PO QHS Reported Methylprednisolone 4 Mg Tab.ds.pk 4 Mg PO DAILY Ventolin Hfa Inhaler (Albuterol Sulfate) 18 Gm Hfa.aer.ad 2 Puff INH Q4HRS Flonase Allergy Relief (Fluticasone Propionate) 9.9 Ml [place].susp 2 Sprays NS DAILY Lisinopril 10 Mg Tablet 1 Tab PO DAILY Xanax (Alprazolam) 0.25 Mg Tablet 1 Tab PO BID Tylenol (Acetaminophen) 325 Mg Tablet 1-2 Tab PO QID Vitals/I & O Vital Sign - Last 24 Hours 09/08/21 09/09/21 09/09/21 09/09/21 23:06 01:29 01:59 03:00 Temp 98.6 98.5 98.6 98.5 Pulse 81 77 Resp 14 20 20 14 B/P (MAP) 101/56 (71) 116/63 (80) Pulse Ox 94 94 O2 Delivery Room Air Room Air Room Air Room Air 09/09/21 09/09/21 09/09/21 09/09/21 07:00 08:00 08:59 09:30 Temp 98.0 98.0 Pulse 89 77 Resp 16 B/P (MAP) 97/52 (67) 116/63 Pulse Ox 91 O2 Delivery Room Air Room Air Room Air 09/09/21 09/09/21 09/09/21 09/09/21 10:56 15:25 17:50 20:10 Temp 98.2 97.6 98.2 97.6 Pulse 86 71 Resp 16 16 B/P (MAP) 102/55 (71) 121/76 (91) Pulse Ox 96 96 O2 Delivery Room Air Room Air Room Air Room Air 09/09/21 21:38 Resp 20 O2 Delivery Room Air Intake and Output 09/08/21 09/08/21 09/09/21 15:00 23:00 07:00 Intake Total 3860 ml 1500 ml Output Total 470 ml 175 ml Balance 3390 ml 1325 ml Justifications for Admission Other Justification GINNY MONTANO PET HANDLER Sep 09, 2021 22:39
[2021-09-09 23:00] VITALS: BP 92/57
[2021-09-10] MEDS: oxyCODONE/APAP 5/325 1 TAB TABLET PO PRN ×3 (02:01→13:38)
[2021-09-10 03:00] VITALS: BP 91/56
[2021-09-10] MEDS: POTASSIUM CL 20MEQ D5-0.45NACL 1,000 ML IV SCH ×2 (06:53→21:05)
[2021-09-10 07:00] VITALS: BP 98/60
[2021-09-10] MEDS: DOCUSATE SODIUM 100 MG CAPSULE. PO SCH ×2 (08:33→21:26)
[2021-09-10] MEDS: ALPRAZolam 0.25 MG TABLET PO SCH ×2 (08:33→21:26)
[2021-09-10] MEDS: LISINOPRIL 10 MG TABLET PO SCH (08:34)
[2021-09-10] MEDS: FLUTICASONE 50MCG/NASAL SPRAY 16GM BOTTLE. NS SCH (08:34)
[2021-09-10 11:00] VITALS: BP 92/51
[2021-09-10] MEDS: BACLOFEN 10 MG TABLET. PO SCH ×2 (14:00→21:26)
[2021-09-10] MEDS: GABAPENTIN 300 MG CAPSULE. PO SCH ×2 (14:00→21:26)
--- NOTE | 2021-09-10 14:13 | PDOC ---
PROGRESS NOTES Date of Service DATE: 09/10/21 TIME: 14:06 Subjective Subjective POD #2 T9, T10, T11, T12 laminectomy with intradural exploration and gross total resection of thoracic mass incision pain, controlled with medication some numbness in left hip overall she feels improved has been ambulating in the halls Objective Objective Vital Signs Date Time Temp Pulse Resp B/P (MAP) Pulse Ox O2 Delivery O2 Flow Rate FiO2 09/10/21 11:00 99.2 110 18 92/51 (65) 95 99.2 09/10/21 07:46 Room Air 09/08/21 15:37 10 Intake and Output 09/10/21 07:00 Intake Total 1100 ml Output Total 600 ml Balance 500 ml Intake Oral 1100 ml Output Urine Total 600 ml # Voids 10 Physical Exam General: Alert, Oriented X3, Cooperative, No acute distress MUSCULOSKELETAL: Other (DUNCAN) Neuro: Normal speech Skin: Other (dressing C,D, I, flat) Plan Plan of Care Pain control PT Consult Dr. Era vanessa dc tomorrow D/W RN Comment Review of Relevant I have reviewed the following items marychuy (where applicable) has been applied. Medications Current Medications Fentanyl Citrate (Fentanyl 2ml Vial) 25 mcg PRN Q5MIN PRN IVP MILD PAIN 1-3; Start 09/08/21 at 06:00; Stop 09/08/21 at 18:00; Status DC Fentanyl Citrate (Fentanyl 2ml Vial) 50 mcg PRN Q5MIN PRN IVP MODERATE PAIN 4-6 Last administered on 09/08/21at 16:33; Start 09/08/21 at 06:00; Stop 09/08/21 at 18:00; Status DC Morphine Sulfate (Morphine Sulfate) 1 mg PRN Q10MIN PRN IVP SEVERE PAIN 7-10; Start 09/08/21 at 06:00; Stop 09/08/21 at 18:00; Status DC Ringer's Solution 1,000 ml @ 30 mls/hr Q24H IV Last administered on 09/08/21at 08:04; Start 09/08/21 at 06:00; Stop 09/08/21 at 17:59; Status DC Hydromorphone HCl (Dilaudid) 0.5 mg PRN Q10MIN PRN IVP SEVERE PAIN 7-10, 2nd CHOICE; Start 09/08/21 at 06:00; Stop 09/08/21 at 18:00; Status DC Prochlorperazine Edisylate (Compazine) 5 mg PACU PRN PRN IVP NAUSEA, MRX1; Start 09/08/21 at 06:00; Stop 09/08/21 at 18:00; Status DC Vancomycin HCl 1 gm/Sodium Chloride 1,000 ml @ 1,000 mls/hr 1X PREOP PRN IRR FOR USE DURING PROCEDURE; Start 09/07/21 at 11:00; Status Cancel Vancomycin HCl 1 gm/Sodium Chloride 1,000 ml @ 1,000 mls/hr 1X PREOP PRN IRR FOR USE DURING PROCEDURE Last administered on 09/08/21at 10:19; Start 09/08/21 at 06:00; Stop 09/08/21 at 15:00; Status DC Vancomycin HCl 1 gm/Sodium Chloride 250 ml @ 250 mls/hr PREOP PRN PRN IV PRIOR TO PROCEDURE; Start 09/08/21 at 06:00; Stop 09/08/21 at 15:00; Status DC Gelatin (Gelfoam Size 100) 1 each STK-MED ONCE .ROUTE Last administered on 09/08/21 10:19; Start 09/08/21 at 06:34; Stop 09/08/21 at 06:34; Status DC Bupivacaine HCl/ Epinephrine Bitart (Sensorcain-Epi 0.5% Kit) 30 ml STK-MED ONCE .ROUTE Last administered on 09/08/21 10:19; Start 09/08/21 at 06:34; Stop 09/08/21 at 06:34; Status DC Ketorolac Tromethamine (Toradol Im) 60 mg STK-MED ONCE .ROUTE Last administered on 09/08/21 10:19; Start 09/08/21 at 06:34; Stop 09/08/21 at 06:34; Status DC Thrombin 20,000 unit STK-MED ONCE TP Last administered on 09/08/21 10:19; Start 09/08/21 at 06:34; Stop 09/08/21 at 06:35; Status DC Propofol (Diprivan) 200 mg STK-MED ONCE IV ; Start 09/08/21 at 05:49; Stop 09/08/21 at 07:49; Status DC Lidocaine HCl (Lidocaine Pf 2% Vial) 5 ml STK-MED ONCE .ROUTE ; Start 09/08/21 at 05:49; Stop 09/08/21 at 07:49; Status DC Ondansetron HCl (Zofran) 4 mg STK-MED ONCE .ROUTE ; Start 09/08/21 at 05:49; Stop 09/08/21 at 07:49; Status DC Phenylephrine HCl (Robert-Synephrine Inj) 10 mg STK-MED ONCE .ROUTE ; Start 09/08/21 at 05:49; Stop 09/08/21 at 07:49; Status DC Propofol 50 ml @ As Directed STK-MED ONCE IV ; Start 09/08/21 at 05:49; Stop 09/08/21 at 07:49; Status DC Dexamethasone Sodium Phosphate (Decadron) 4 mg STK-MED ONCE .ROUTE ; Start 09/08/21 at 05:49; Stop 09/08/21 at 07:49; Status DC Sevoflurane (Ultane) 90 ml STK-MED ONCE IH ; Start 09/08/21 at 05:49; Stop 09/08/21 at 07:49; Status DC Ketamine HCl (Ketamine) 50 mg STK-MED ONCE .ROUTE ; Start 09/08/21 at 05:49; Stop 09/08/21 at 07:49; Status DC Fentanyl Citrate (Fentanyl 2ml Vial) 100 mcg STK-MED ONCE .ROUTE ; Start 09/08/21 at 05:49; Stop 09/08/21 at 07:49; Status DC Succinylcholine Chloride (Anectine) 200 mg STK-MED ONCE .ROUTE ; Start 09/08/21 at 05:49; Stop 09/08/21 at 07:49; Status DC Remifentanil HCl (Ultiva) 1 mg STK-MED ONCE IV ; Start 09/08/21 at 05:49; Stop 09/08/21 at 07:49; Status DC Midazolam HCl (Versed) 2 mg STK-MED ONCE .ROUTE ; Start 09/08/21 at 06:49; Stop 09/08/21 at 08:50; Status DC Propofol (Diprivan) 200 mg STK-MED ONCE IV ; Start 09/08/21 at 08:21; Stop 09/08/21 at 10:22; Status DC Propofol 50 ml @ As Directed STK-MED ONCE IV ; Start 09/08/21 at 10:34; Stop 09/08/21 at 12:34; Status DC Propofol 50 ml @ As Directed STK-MED ONCE IV ; Start 09/08/21 at 10:34; Stop 09/08/21 at 12:34; Status DC Propofol 50 ml @ As Directed STK-MED ONCE IV ; Start 09/08/21 at 10:34; Stop 09/08/21 at 12:34; Status DC Remifentanil HCl (Ultiva) 1 mg STK-MED ONCE IV ; Start 09/08/21 at 11:22; Stop 09/08/21 at 13:23; Status DC Gelatin (Gelfoam Size 100) 1 each STK-MED ONCE .ROUTE Last administered on 09/08/21at 13:34; Start 09/08/21 at 13:30; Stop 09/08/21 at 13:31; Status DC Thrombin 20,000 unit STK-MED ONCE TP Last administered on 09/08/21at 13:34; Start 09/08/21 at 13:31; Stop 09/08/21 at 13:31; Status DC Phenylephrine HCl (Robert-Synephrine Inj) 10 mg STK-MED ONCE .ROUTE ; Start 09/08/21 at 11:57; Stop 09/08/21 at 13:57; Status DC Propofol 50 ml @ As Directed STK-MED ONCE IV ; Start 09/08/21 at 12:27; Stop 09/08/21 at 14:28; Status DC Albumin Human 500 ml @ As Directed STK-MED ONCE IV ; Start 09/08/21 at 12:57; Stop 09/08/21 at 14:57; Status DC Hydromorphone HCl (Dilaudid) 2 mg STK-MED ONCE .ROUTE ; Start 09/08/21 at 13:05; Stop 09/08/21 at 15:05; Status DC Alprazolam (Xanax) 0.25 mg BID PO Last administered on 09/10/21at 08:33; Start 09/08/21 at 21:00 Atorvastatin Calcium (Lipitor) 20 mg QHS PO Last administered on 09/09/21at 21:34; Start 09/08/21 at 21:00 Lisinopril (Prinivil) 10 mg DAILY PO Last administered on 09/09/21at 08:59; Start 09/09/21 at 09:00 Non-Formulary Medication (Albuterol Sulfate (Ventolin Hfa Inhaler)) 2 puff Q4HRS INH ; Start 09/08/21 at 16:00; Status UNV Fluticasone Propionate (Flonase) 2 spray DAILY NS ; Start 09/09/21 at 09:00 Fentanyl Citrate (Fentanyl 2ml Vial) 50 mcg PRN Q2HR PRN IVP PAIN; Start 09/08/21 at 15:45 Acetaminophen (Tylenol) 650 mg PRN Q6HRS PRN PO MILD PAIN / TEMP > 100.3'F; Start 09/08/21 at 15:45 Al Hydroxide/Mg Hydroxide (Mylanta Plus Xs) 30 ml PRN Q3HRS PRN PO HEARTBURN / GAS; Start 09/08/21 at 15:45 Calcium Carbonate/ Glycine (Tums) 500 mg PRN Q3HRS PRN PO INDIGESTION; Start 09/08/21 at 15:45 Diphenhydramine HCl (Benadryl) 25 mg PRN Q6HRS PRN PO ITCHING; Start 09/08/21 at 15:45 Naloxone HCl (Narcan) 0.1 mg PRN Q2MIN PRN IV SEE COMMENTS; Start 09/08/21 at 15:45 Sodium Chloride (Normal Saline Flush) 3 ml QSHIFT PRN IV AFTER MEDS AND BLOOD DRAWS; Start 09/08/21 at 15:45 Potassium Chloride/Dextrose/ Sod Cl 1,000 ml @ 75 mls/hr [id number] IV Last administered on 09/08/21at 21:35; Start 09/08/21 at 15:45 Oxycodone/ Acetaminophen (Percocet 5/325) 1 tab PRN Q4HRS PRN PO MODERATE PAIN Last administered on 09/10/21at 08:33; Start 09/08/21 at 15:45 Oxycodone/ Acetaminophen (Percocet 5/325) 2 tab PRN Q4HRS PRN PO SEVERE PAIN Last administered on 09/10/21at 13:38; Start 09/08/21 at 15:45 Methocarbamol (Robaxin) 750 mg TID PRN PO MUSCLE SPASMS Last administered on 09/09/21at 17:21; Start 09/08/21 at 15:45 Docusate Sodium (Colace) 100 mg BID PO Last administered on 09/10/21at 08:33; Start 09/08/21 at 21:00 Magnesium Hydroxide (Milk Of Magnesia) 2,400 mg PRN Q12HR PRN PO CONSTIPATION; Start 09/08/21 at 15:45 Ondansetron HCl (Zofran) 4 mg PRN Q6HRS PRN IVP NAUESA, 1ST CHOICE; Start 09/08/21 at 15:45 Fentanyl Citrate (Fentanyl 2ml Vial) 100 mcg STK-MED ONCE .ROUTE ; Start 09/08/21 at 16:10; Stop 09/08/21 at 16:10; Status DC Albuterol Sulfate (Ventolin Neb Soln) 2.5 mg PRN Q4HRS PRN NEB SHORTNESS OF BREATH; Start 09/08/21 at 18:30 Baclofen (Lioresal) 10 mg TID PO ; Start 09/10/21 at 14:00 Gabapentin (Neurontin) 300 mg TID PO ; Start 09/10/21 at 14:00 Active Scripts Active Lipitor (Atorvastatin Calcium) 20 Mg Tablet 20 Mg PO QHS Reported Methylprednisolone 4 Mg Tab.ds.pk 4 Mg PO DAILY Ventolin Hfa Inhaler (Albuterol Sulfate) 18 Gm Hfa.aer.ad 2 Puff INH Q4HRS Flonase Allergy Relief (Fluticasone Propionate) 9.9 Ml [place].susp 2 Sprays NS DAILY Lisinopril 10 Mg Tablet 1 Tab PO DAILY Xanax (Alprazolam) 0.25 Mg Tablet 1 Tab PO BID Tylenol (Acetaminophen) 325 Mg Tablet 1-2 Tab PO QID Vitals/I & O Vital Sign - Last 24 Hours 09/09/21 09/09/21 09/09/21 09/09/21 15:25 17:50 20:10 21:38 Temp 97.6 97.6 Pulse 71 Resp 16 20 B/P (MAP) 121/76 (91) Pulse Ox 96 O2 Delivery Room Air Room Air Room Air Room Air 09/09/21 09/09/21 09/10/21 09/10/21 22:08 23:00 02:01 02:31 Temp 99.1 99.1 Pulse 96 Resp 20 14 20 20 B/P (MAP) 92/57 (69) Pulse Ox 94 O2 Delivery Room Air Room Air Room Air Room Air 09/10/21 09/10/21 09/10/21 09/10/21 03:00 07:00 07:46 08:34 Temp 98.5 98.5 98.5 98.5 Pulse 111 105 105 Resp 14 20 B/P (MAP) 91/56 (68) 98/60 (73) 98/60 Pulse Ox 94 93 O2 Delivery Room Air Room Air 09/10/21 11:00 Temp 99.2 99.2 Pulse 110 Resp 18 B/P (MAP) 92/51 (65) Pulse Ox 95 Intake and Output 09/09/21 09/09/21 09/10/21 15:00 23:00 07:00 Intake Total 800 ml 300 ml Output Total 600 ml Balance 200 ml 300 ml Justifications for Admission Other Justification JAQUELINE ESCAMILLA MD Sep 10, 2021 14:13
[2021-09-10] MEDS: BISACODYL 5 MG TABLET.DR. PO SCH ×2 (14:15→21:26)
[2021-09-10] MEDS ORDERED: MAGNESIUM HYDROXIDE 2,400 MG/30 ML ORAL.SUSP. PO PRN (14:15)
[2021-09-10 15:00] VITALS: BP 125/66
--- NOTE | 2021-09-10 17:44 | CONS ---
DATE OF CONSULTATION: 09/10/2021 ATTENDING PHYSICIAN: Aaron Irvin MD. REASON FOR CONSULTATION: The patient was seen at the request of Dr. Irvin for rehab evaluation. HISTORY OF PRESENT ILLNESS: This is a 60-year-old female who works as a unit secretary for the [employer]. The patient is having difficulty with mid and lower back pain along with left buttock area pain and posterolateral and left leg pain present for more than 5 years and after she had COVID-19 infection in the recent months, problem got worse. She feels unsteady, difficulty walking, has to use a roller walker. She has some weakness of her left leg. The patient rates her pain at 8/10. Lying down, standing, walking or lifting increases her pain. She had used ice packs with some help as well as changing her position from sitting. She takes Tylenol on as-needed basis. Has tried oral steroids, which she said did help her to some extent. She uses a lumbar support and left knee brace. She had recently got treated with epidural steroid injections for lower back pain. She was noted with T10-T11 area mass. 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 Frozen section diagnosis being a schwannoma. The patient had surgery done on 09/08/2021. She admits some constipation and occasional urinary incontinence. The patient admits some numbness in the left thigh and left buttock area since the surgery. ALLERGIES: THE PATIENT IS KNOWN ALLERGIC TO PENICILLIN, ASPIRIN, CIPRO, DOXYCYCLINE AND LATEX. MEDICATIONS: She has been on Flonase, alprazolam, atorvastatin, lisinopril and Tylenol before. PAST MEDICAL HISTORY: Includes hypertension, colitis, ulcers, status post cholecystectomy in 2013. FAMILY HISTORY: Alzheimer's disease, carcinoma, heart disease and hypertension. SOCIAL HISTORY: She smoked 1 pack of cigarettes for 20 years. The patient had 1 step to manage to enter the house. She had a roller walker at home. PHYSICAL EXAMINATION: GENERAL: Today revealed a middle-aged female. She is alert, oriented to time, place, person and circumstance, follows commands appropriately. NEUROLOGIC: Moves all 4 extremities voluntarily, where she had 4/5 to 4+/5 grade muscle strength. Deep tendon reflexes are 1-2+ and symmetrical. She had slightly decreased touch and pinprick sensation over left side of her lower back, left buttock and over left lateral femoral cutaneous nerve distribution and negative Tinel's sign over left lateral femoral cutaneous nerve at the inguinal ligament area. The patient had tenderness to palpation over mid thoracic and lower thoracic paraspinal muscles and over sacroiliac joint area. Straight leg raising test is negative bilaterally. The patient is independent with bed mobility, transfers and up walking using a roller walker slowly. She is having increased discomfort trying to roll in the bed and trying to come to a sitting and standing position, more so over rolling in the bed. She had dressing to mid thoracic spine area. The patient had minimal degree of thoracic paraspinal muscle spasm, right side more than left side. ASSESSMENT: A middle-aged female status post gross total resection of thoracic schwannoma after T10, T9, T11 and T12 laminectomy done on 09/08/2021 for treatment of thoracic mass causing spinal cord compression and myelopathy at T10-T11 level. The patient also presents with meralgia paresthetica, left thigh. The patient continues to have mobility and self-care limitations from her thoracic area pain with associated thoracic paraspinal muscle spasm. No clinical evidence of ongoing thoracic or lumbar radiculopathy. Also, with known degenerative disk disease of lumbar vertebrae. No clinical evidence of ongoing lumbar radiculopathy. The patient with known hypertension, colitis and ulcers. RECOMMENDATIONS: Agree with physical therapy to have occupational therapy see her to make sure she is emptying her bladder completely. She is not eating much, to encourage her to eat, so she can have a good bowel movement the next day or so before letting her go home, to try gabapentin to help with her left thigh dysesthesia. Dr. Irvin, I appreciate asking me to participate in the care of this interesting patient. We will see how she does in the next day or so, so that she can go home or may be transferred to inpatient rehab unit for a few days if needed. LOUANN/SIENA DR: Mohini TID: [id number]
[2021-09-10 19:00] VITALS: BP 91/52
[2021-09-10] MEDS: ATORVASTATIN CALCIUM 20 MG TABLET PO SCH (21:26)
[2021-09-10 23:00] VITALS: BP 92/56
[2021-09-11 07:00] VITALS: BP 107/57
--- NOTE | 2021-09-11 08:52 | PDOC ---
PROGRESS NOTES Date of Service DATE: 09/11/21 TIME: 08:45 Subjective Subjective She admits continued back pain but less. Objective Objective Vital Signs Date Time Temp Pulse Resp B/P (MAP) Pulse Ox O2 Delivery O2 Flow Rate FiO2 09/11/21 07:00 98.2 117 18 107/57 (74) 95 Room Air 98.2 09/08/21 15:37 10 Intake and Output 09/11/21 07:00 Intake Total 250 ml Balance 250 ml Intake Oral 250 ml # Voids 4 Physical Exam Physical Exam She is alert,sitting in bedside chair and continues with painfully limited thoracic spine ROM with tenderness to palpation over thoracic paraspinal muscles and she walked for 250' with physical therapy yesterday. She had low grade fever last night and she is afebrile this AM. She had 2 ml post voiding urine residual with bladder scan and she denies any dysuria. Plan Plan of Care To obtain chest x-ray,cbc,bmp,sed rate and urine culture and home tomorrow if medically stable. Comment Review of Relevant I have reviewed the following items marychuy (where applicable) has been applied. Medications Current Medications Fentanyl Citrate (Fentanyl 2ml Vial) 25 mcg PRN Q5MIN PRN IVP MILD PAIN 1-3; Start 09/08/21 at 06:00; Stop 09/08/21 at 18:00; Status DC Fentanyl Citrate (Fentanyl 2ml Vial) 50 mcg PRN Q5MIN PRN IVP MODERATE PAIN 4-6 Last administered on 09/08/21at 16:33; Start 09/08/21 at 06:00; Stop 09/08/21 at 18:00; Status DC Morphine Sulfate (Morphine Sulfate) 1 mg PRN Q10MIN PRN IVP SEVERE PAIN 7-10; Start 09/08/21 at 06:00; Stop 09/08/21 at 18:00; Status DC Ringer's Solution 1,000 ml @ 30 mls/hr Q24H IV Last administered on 09/08/21at 08:04; Start 09/08/21 at 06:00; Stop 09/08/21 at 17:59; Status DC Hydromorphone HCl (Dilaudid) 0.5 mg PRN Q10MIN PRN IVP SEVERE PAIN 7-10, 2nd CHOICE; Start 09/08/21 at 06:00; Stop 09/08/21 at 18:00; Status DC Prochlorperazine Edisylate (Compazine) 5 mg PACU PRN PRN IVP NAUSEA, MRX1; Start 09/08/21 at 06:00; Stop 09/08/21 at 18:00; Status DC Vancomycin HCl 1 gm/Sodium Chloride 1,000 ml @ 1,000 mls/hr 1X PREOP PRN IRR FOR USE DURING PROCEDURE; Start 09/07/21 at 11:00; Status Cancel Vancomycin HCl 1 gm/Sodium Chloride 1,000 ml @ 1,000 mls/hr 1X PREOP PRN IRR FOR USE DURING PROCEDURE Last administered on 09/08/21at 10:19; Start 09/08/21 at 06:00; Stop 09/08/21 at 15:00; Status DC Vancomycin HCl 1 gm/Sodium Chloride 250 ml @ 250 mls/hr PREOP PRN PRN IV PRIOR TO PROCEDURE; Start 09/08/21 at 06:00; Stop 09/08/21 at 15:00; Status DC Gelatin (Gelfoam Size 100) 1 each STK-MED ONCE .ROUTE Last administered on 09/08/21at 10:19; Start 09/08/21 at 06:34; Stop 09/08/21 at 06:34; Status DC Bupivacaine HCl/ Epinephrine Bitart (Sensorcain-Epi 0.5% Kit) 30 ml STK-MED ONCE .ROUTE Last administered on 09/08/21at 10:19; Start 09/08/21 at 06:34; Stop 09/08/21 at 06:34; Status DC Ketorolac Tromethamine (Toradol Im) 60 mg STK-MED ONCE .ROUTE Last administered on 09/08/21at 10:19; Start 09/08/21 at 06:34; Stop 09/08/21 at 06:34; Status DC Thrombin 20,000 unit STK-MED ONCE TP Last administered on 09/08/21 10:19; Start 09/08/21 at 06:34; Stop 09/08/21 at 06:35; Status DC Propofol (Diprivan) 200 mg STK-MED ONCE IV ; Start 09/08/21 at 05:49; Stop 09/08/21 at 07:49; Status DC Lidocaine HCl (Lidocaine Pf 2% Vial) 5 ml STK-MED ONCE .ROUTE ; Start 09/08/21 at 05:49; Stop 09/08/21 at 07:49; Status DC Ondansetron HCl (Zofran) 4 mg STK-MED ONCE .ROUTE ; Start 09/08/21 at 05:49; Stop 09/08/21 at 07:49; Status DC Phenylephrine HCl (Robert-Synephrine Inj) 10 mg STK-MED ONCE .ROUTE ; Start 09/08/21 at 05:49; Stop 09/08/21 at 07:49; Status DC Propofol 50 ml @ As Directed STK-MED ONCE IV ; Start 09/08/21 at 05:49; Stop 09/08/21 at 07:49; Status DC Dexamethasone Sodium Phosphate (Decadron) 4 mg STK-MED ONCE .ROUTE ; Start 09/08/21 at 05:49; Stop 09/08/21 at 07:49; Status DC Sevoflurane (Ultane) 90 ml STK-MED ONCE IH ; Start 09/08/21 at 05:49; Stop 09/08/21 at 07:49; Status DC Ketamine HCl (Ketamine) 50 mg STK-MED ONCE .ROUTE ; Start 09/08/21 at 05:49; Stop 09/08/21 at 07:49; Status DC Fentanyl Citrate (Fentanyl 2ml Vial) 100 mcg STK-MED ONCE .ROUTE ; Start 09/08/21 at 05:49; Stop 09/08/21 at 07:49; Status DC Succinylcholine Chloride (Anectine) 200 mg STK-MED ONCE .ROUTE ; Start 09/08/21 at 05:49; Stop 09/08/21 at 07:49; Status DC Remifentanil HCl (Ultiva) 1 mg STK-MED ONCE IV ; Start 09/08/21 at 05:49; Stop 09/08/21 at 07:49; Status DC Midazolam HCl (Versed) 2 mg STK-MED ONCE .ROUTE ; Start 09/08/21 at 06:49; Stop 09/08/21 at 08:50; Status DC Propofol (Diprivan) 200 mg STK-MED ONCE IV ; Start 09/08/21 at 08:21; Stop 09/08/21 at 10:22; Status DC Propofol 50 ml @ As Directed STK-MED ONCE IV ; Start 09/08/21 at 10:34; Stop 09/08/21 at 12:34; Status DC Propofol 50 ml @ As Directed STK-MED ONCE IV ; Start 09/08/21 at 10:34; Stop 09/08/21 at 12:34; Status DC Propofol 50 ml @ As Directed STK-MED ONCE IV ; Start 09/08/21 at 10:34; Stop 09/08/21 at 12:34; Status DC Remifentanil HCl (Ultiva) 1 mg STK-MED ONCE IV ; Start 09/08/21 at 11:22; Stop 09/08/21 at 13:23; Status DC Gelatin (Gelfoam Size 100) 1 each STK-MED ONCE .ROUTE Last administered on 09/08/21at 13:34; Start 09/08/21 at 13:30; Stop 09/08/21 at 13:31; Status DC Thrombin 20,000 unit STK-MED ONCE TP Last administered on 09/08/21at 13:34; Start 09/08/21 at 13:31; Stop 09/08/21 at 13:31; Status DC Phenylephrine HCl (Robert-Synephrine Inj) 10 mg STK-MED ONCE .ROUTE ; Start 09/08/21 at 11:57; Stop 09/08/21 at 13:57; Status DC Propofol 50 ml @ As Directed STK-MED ONCE IV ; Start 09/08/21 at 12:27; Stop 09/08/21 at 14:28; Status DC Albumin Human 500 ml @ As Directed STK-MED ONCE IV ; Start 09/08/21 at 12:57; Stop 09/08/21 at 14:57; Status DC Hydromorphone HCl (Dilaudid) 2 mg STK-MED ONCE .ROUTE ; Start 09/08/21 at 13:05; Stop 09/08/21 at 15:05; Status DC Alprazolam (Xanax) 0.25 mg BID PO Last administered on 09/10/21at 21:26; Start 09/08/21 at 21:00 Atorvastatin Calcium (Lipitor) 20 mg QHS PO Last administered on 09/10/21at 21:26; Start 09/08/21 at 21:00 Lisinopril (Prinivil) 10 mg DAILY PO Last administered on 09/09/21at 08:59; Start 09/09/21 at 09:00 Non-Formulary Medication (Albuterol Sulfate (Ventolin Hfa Inhaler)) 2 puff Q4HRS INH ; Start 09/08/21 at 16:00; Status UNV Fluticasone Propionate (Flonase) 2 spray DAILY NS ; Start 09/09/21 at 09:00 Fentanyl Citrate (Fentanyl 2ml Vial) 50 mcg PRN Q2HR PRN IVP PAIN; Start 09/08/21 at 15:45 Acetaminophen (Tylenol) 650 mg PRN Q6HRS PRN PO MILD PAIN / TEMP > 100.3'F; Start 09/08/21 at 15:45 Al Hydroxide/Mg Hydroxide (Mylanta Plus Xs) 30 ml PRN Q3HRS PRN PO HEARTBURN / GAS; Start 09/08/21 at 15:45 Calcium Carbonate/ Glycine (Tums) 500 mg PRN Q3HRS PRN PO INDIGESTION; Start 09/08/21 at 15:45 Diphenhydramine HCl (Benadryl) 25 mg PRN Q6HRS PRN PO ITCHING; Start 09/08/21 at 15:45 Naloxone HCl (Narcan) 0.1 mg PRN Q2MIN PRN IV SEE COMMENTS; Start 09/08/21 at 15:45 Sodium Chloride (Normal Saline Flush) 3 ml QSHIFT PRN IV AFTER MEDS AND BLOOD DRAWS; Start 09/08/21 at 15:45 Potassium Chloride/Dextrose/ Sod Cl 1,000 ml @ 75 mls/hr [id number] IV Last administered on 09/08/21at 21:35; Start 09/08/21 at 15:45 Oxycodone/ Acetaminophen (Percocet 5/325) 1 tab PRN Q4HRS PRN PO MODERATE PAIN Last administered on 09/10/21at 08:33; Start 09/08/21 at 15:45 Oxycodone/ Acetaminophen (Percocet 5/325) 2 tab PRN Q4HRS PRN PO SEVERE PAIN Last administered on 09/10/21at 13:38; Start 09/08/21 at 15:45 Methocarbamol (Robaxin) 750 mg TID PRN PO MUSCLE SPASMS Last administered on 09/09/21at 17:21; Start 09/08/21 at 15:45 Docusate Sodium (Colace) 100 mg BID PO Last administered on 09/10/21at 21:26; Start 09/08/21 at 21:00 Magnesium Hydroxide (Milk Of Magnesia) 2,400 mg PRN Q12HR PRN PO CONSTIPATION; Start 09/08/21 at 15:45 Ondansetron HCl (Zofran) 4 mg PRN Q6HRS PRN IVP NAUESA, 1ST CHOICE; Start 09/08/21 at 15:45 Fentanyl Citrate (Fentanyl 2ml Vial) 100 mcg STK-MED ONCE .ROUTE ; Start 09/08/21 at 16:10; Stop 09/08/21 at 16:10; Status DC Albuterol Sulfate (Ventolin Neb Soln) 2.5 mg PRN Q4HRS PRN NEB SHORTNESS OF BREATH; Start 09/08/21 at 18:30 Baclofen (Lioresal) 10 mg TID PO Last administered on 09/10/21at 21:26; Start 09/10/21 at 14:00 Gabapentin (Neurontin) 300 mg TID PO Last administered on 09/10/21at 21:26; Start 09/10/21 at 14:00 Magnesium Hydroxide (Milk Of Magnesia) 2,400 mg PRN DAILY PRN PO CONSTIPATION; Start 09/10/21 at 14:15 Bisacodyl (Dulcolax Tab) 5 mg BID PO Last administered on 09/10/21at 21:26; Start 09/10/21 at 14:15 Active Scripts Active Lipitor (Atorvastatin Calcium) 20 Mg Tablet 20 Mg PO QHS Reported Methylprednisolone 4 Mg Tab.ds.pk 4 Mg PO DAILY Ventolin Hfa Inhaler (Albuterol Sulfate) 18 Gm Hfa.aer.ad 2 Puff INH Q4HRS Flonase Allergy Relief (Fluticasone Propionate) 9.9 Ml [place].susp 2 Sprays NS DAILY Lisinopril 10 Mg Tablet 1 Tab PO DAILY Xanax (Alprazolam) 0.25 Mg Tablet 1 Tab PO BID Tylenol (Acetaminophen) 325 Mg Tablet 1-2 Tab PO QID Vitals/I & O Vital Sign - Last 24 Hours 09/10/21 09/10/21 09/10/21 09/10/21 11:00 15:00 19:00 20:00 Temp 99.2 98.3 99.0 99.2 98.3 99.0 Pulse 110 111 115 Resp 18 20 18 B/P (MAP) 92/51 (65) 125/66 (85) 91/52 (65) Pulse Ox 95 96 97 O2 Delivery Room Air Room Air 09/10/21 09/11/21 23:00 07:00 Temp 99.4 98.2 99.4 98.2 Pulse 74 117 Resp 18 18 B/P (MAP) 92/56 (68) 107/57 (74) Pulse Ox 98 95 O2 Delivery Room Air Room Air Intake and Output 09/10/21 09/10/21 09/11/21 15:00 23:00 07:00 Intake Total 250 ml Balance 250 ml Justifications for Admission Other Justification SHER PENNY MD Sep 11, 2021 08:51
[2021-09-11] MEDS: LISINOPRIL 10 MG TABLET PO SCH ×2 (09:00→09:06)
[2021-09-11] MEDS: FLUTICASONE 50MCG/NASAL SPRAY 16GM BOTTLE. NS SCH (09:00)
[2021-09-11] MEDS: BACLOFEN 10 MG TABLET. PO SCH ×3 (09:05→21:50)
[2021-09-11] MEDS: BISACODYL 5 MG TABLET.DR. PO SCH ×2 (09:06→21:50)
[2021-09-11] MEDS: GABAPENTIN 300 MG CAPSULE. PO SCH ×3 (09:06→21:50)
[2021-09-11] MEDS: ALPRAZolam 0.25 MG TABLET PO SCH ×2 (09:06→21:50)
[2021-09-11] MEDS: DOCUSATE SODIUM 100 MG CAPSULE. PO SCH ×2 (09:06→21:50)
[2021-09-11] MEDS: oxyCODONE/APAP 5/325 1 TAB TABLET PO PRN ×2 (09:07→18:33)
[2021-09-11] MEDS: POTASSIUM CL 20MEQ D5-0.45NACL 1,000 ML IV SCH ×2 (10:25→23:45)
[2021-09-11 10:37] VITALS: BP 101/61
[2021-09-11 11:23] LABS: BASO # 0.1 x10^3/uL (0.0-0.2); BASO % 1 % (0-3); EOS % 0 % (0-3); HEMATOCRIT 38.1 % (36.0-47.0); HEMOGLOBIN 12.2 g/dL (12.0-15.5); LYMPH # 2.3 x10^3/uL (1.0-4.8); LYMPH % 12 % (24-48); MEAN CORPUSCULAR HEMOGLOBIN 30 pg (25-35); MEAN CORPUSCULAR HGB CONC 32 g/dL (31-37); MEAN CORPUSCULAR VOLUME 93 fL (79-100); MONO # 1.8 x10^3/uL (0.0-1.1); MONO % 9 % (0-9); NEUT # 15.7 x10^3/uL (1.8-7.7); NEUT % 79 % (31-73); PLATELET COUNT 343 x10^3/uL (140-400); RED BLOOD COUNT 4.08 x10^6/uL (3.50-5.40); RED CELL DISTRIBUTION WIDTH 14.6 % (11.5-14.5)
[2021-09-11 11:30] LABS: CALCIUM 9.1 mg/dL (8.5-10.1); GFR 56.2; POTASSIUM 4.3 mmol/L (3.5-5.1)
--- NOTE | 2021-09-11 13:23 | PDOC ---
PROGRESS NOTES Date of Service DATE: 09/11/21 TIME: 13:14 Subjective Subjective POD #3 T9, T10, T11, T12 laminectomy with intradural exploration and gross total resection of thoracic mass up in chair incision pain, controlled with medication some numbness in left hip overall she feels improved constipated low grade fever last night, afebrile this AM Objective Objective Vital Signs Date Time Temp Pulse Resp B/P (MAP) Pulse Ox O2 Delivery O2 Flow Rate FiO2 09/11/21 10:45 96 Room Air 10.0 09/11/21 10:37 98.0 90 18 101/61 (74) 98.0 Intake and Output 09/11/21 07:00 Intake Total 250 ml Balance 250 ml Intake Oral 250 ml # Voids 4 Physical Exam General: Alert, Oriented X3, Cooperative, No acute distress MUSCULOSKELETAL: Other (DUNCAN) Neuro: Normal speech Skin: Other (dressing C,D, I) Plan Plan of Care Encouraged increased activity as tolerated, deep breathing and cough PT likely home tomorrow morning Comment Review of Relevant I have reviewed the following items marychuy (where applicable) has been applied. Labs Laboratory Tests Test 09/11/21 10:55 White Blood Count 20.0 x10^3/uL (4.0-11.0) Red Blood Count 4.08 x10^6/uL (3.50-5.40) Hemoglobin 12.2 g/dL (12.0-15.5) Hematocrit 38.1 % (36.0-47.0) Mean Corpuscular Volume 93 fL (79-100) Mean Corpuscular Hemoglobin 30 pg (25-35) Mean Corpuscular Hemoglobin Concent 32 g/dL (31-37) Red Cell Distribution Width 14.6 % (11.5-14.5) Platelet Count 343 x10^3/uL (140-400) Neutrophils (%) (Auto) 79 % (31-73) Lymphocytes (%) (Auto) 12 % (24-48) Monocytes (%) (Auto) 9 % (0-9) Eosinophils (%) (Auto) 0 % (0-3) Basophils (%) (Auto) 1 % (0-3) Neutrophils # (Auto) 15.7 x10^3/uL (1.8-7.7) Lymphocytes # (Auto) 2.3 x10^3/uL (1.0-4.8) Monocytes # (Auto) 1.8 x10^3/uL (0.0-1.1) Eosinophils # (Auto) 0.0 x10^3/uL (0.0-0.7) Basophils # (Auto) 0.1 x10^3/uL (0.0-0.2) Erythrocyte Sedimentation Rate 92 (0-25) Sodium Level 135 mmol/L (136-145) Potassium Level 4.3 mmol/L (3.5-5.1) Chloride Level 100 mmol/L (98-107) Carbon Dioxide Level 24 mmol/L (21-32) Anion Gap 11 (6-14) Blood Urea Nitrogen 13 mg/dL (7-20) Creatinine 1.0 mg/dL (0.6-1.0) Estimated GFR (Cockcroft-Gault) 56.2 Glucose Level 120 mg/dL (70-99) Calcium Level 9.1 mg/dL (8.5-10.1) Laboratory Tests Test 09/11/21 10:55 White Blood Count 20.0 x10^3/uL (4.0-11.0) Red Blood Count 4.08 x10^6/uL (3.50-5.40) Hemoglobin 12.2 g/dL (12.0-15.5) Hematocrit 38.1 % (36.0-47.0) Mean Corpuscular Volume 93 fL (79-100) Mean Corpuscular Hemoglobin 30 pg (25-35) Mean Corpuscular Hemoglobin Concent 32 g/dL (31-37) Red Cell Distribution Width 14.6 % (11.5-14.5) Platelet Count 343 x10^3/uL (140-400) Neutrophils (%) (Auto) 79 % (31-73) Lymphocytes (%) (Auto) 12 % (24-48) Monocytes (%) (Auto) 9 % (0-9) Eosinophils (%) (Auto) 0 % (0-3) Basophils (%) (Auto) 1 % (0-3) Neutrophils # (Auto) 15.7 x10^3/uL (1.8-7.7) Lymphocytes # (Auto) 2.3 x10^3/uL (1.0-4.8) Monocytes # (Auto) 1.8 x10^3/uL (0.0-1.1) Eosinophils # (Auto) 0.0 x10^3/uL (0.0-0.7) Basophils # (Auto) 0.1 x10^3/uL (0.0-0.2) Erythrocyte Sedimentation Rate 92 (0-25) Sodium Level 135 mmol/L (136-145) Potassium Level 4.3 mmol/L (3.5-5.1) Chloride Level 100 mmol/L (98-107) Carbon Dioxide Level 24 mmol/L (21-32) Anion Gap 11 (6-14) Blood Urea Nitrogen 13 mg/dL (7-20) Creatinine 1.0 mg/dL (0.6-1.0) Estimated GFR (Cockcroft-Gault) 56.2 Glucose Level 120 mg/dL (70-99) Calcium Level 9.1 mg/dL (8.5-10.1) Medications Current Medications Fentanyl Citrate (Fentanyl 2ml Vial) 25 mcg PRN Q5MIN PRN IVP MILD PAIN 1-3; Start 09/08/21 at 06:00; Stop 09/08/21 at 18:00; Status DC Fentanyl Citrate (Fentanyl 2ml Vial) 50 mcg PRN Q5MIN PRN IVP MODERATE PAIN 4-6 Last administered on 09/08/21at 16:33; Start 09/08/21 at 06:00; Stop 09/08/21 at 18:00; Status DC Morphine Sulfate (Morphine Sulfate) 1 mg PRN Q10MIN PRN IVP SEVERE PAIN 7-10; Start 09/08/21 at 06:00; Stop 09/08/21 at 18:00; Status DC Ringer's Solution 1,000 ml @ 30 mls/hr Q24H IV Last administered on 09/08/21at 08:04; Start 09/08/21 at 06:00; Stop 09/08/21 at 17:59; Status DC Hydromorphone HCl (Dilaudid) 0.5 mg PRN Q10MIN PRN IVP SEVERE PAIN 7-10, 2nd CHOICE; Start 09/08/21 at 06:00; Stop 09/08/21 at 18:00; Status DC Prochlorperazine Edisylate (Compazine) 5 mg PACU PRN PRN IVP NAUSEA, MRX1; Start 09/08/21 at 06:00; Stop 09/08/21 at 18:00; Status DC Vancomycin HCl 1 gm/Sodium Chloride 1,000 ml @ 1,000 mls/hr 1X PREOP PRN IRR FOR USE DURING PROCEDURE; Start 09/07/21 at 11:00; Status Cancel Vancomycin HCl 1 gm/Sodium Chloride 1,000 ml @ 1,000 mls/hr 1X PREOP PRN IRR FOR USE DURING PROCEDURE Last administered on 09/08/21at 10:19; Start 09/08/21 at 06:00; Stop 09/08/21 at 15:00; Status DC Vancomycin HCl 1 gm/Sodium Chloride 250 ml @ 250 mls/hr PREOP PRN PRN IV PRIOR TO PROCEDURE; Start 09/08/21 at 06:00; Stop 09/08/21 at 15:00; Status DC Gelatin (Gelfoam Size 100) 1 each STK-MED ONCE .ROUTE Last administered on 09/08/21at 10:19; Start 09/08/21 at 06:34; Stop 09/08/21 at 06:34; Status DC Bupivacaine HCl/ Epinephrine Bitart (Sensorcain-Epi 0.5% Kit) 30 ml STK-MED ONCE .ROUTE Last administered on 09/08/21at 10:19; Start 09/08/21 at 06:34; Stop 09/08/21 at 06:34; Status DC Ketorolac Tromethamine (Toradol Im) 60 mg STK-MED ONCE .ROUTE Last administered on 09/08/21at 10:19; Start 09/08/21 at 06:34; Stop 09/08/21 at 06:34; Status DC Thrombin 20,000 unit STK-MED ONCE TP Last administered on 09/08/21at 10:19; Start 09/08/21 at 06:34; Stop 09/08/21 at 06:35; Status DC Propofol (Diprivan) 200 mg STK-MED ONCE IV ; Start 09/08/21 at 05:49; Stop 09/08/21 at 07:49; Status DC Lidocaine HCl (Lidocaine Pf 2% Vial) 5 ml STK-MED ONCE .ROUTE ; Start 09/08/21 at 05:49; Stop 09/08/21 at 07:49; Status DC Ondansetron HCl (Zofran) 4 mg STK-MED ONCE .ROUTE ; Start 09/08/21 at 05:49; Stop 09/08/21 at 07:49; Status DC Phenylephrine HCl (Robert-Synephrine Inj) 10 mg STK-MED ONCE .ROUTE ; Start 09/08/21 at 05:49; Stop 09/08/21 at 07:49; Status DC Propofol 50 ml @ As Directed STK-MED ONCE IV ; Start 09/08/21 at 05:49; Stop 09/08/21 at 07:49; Status DC Dexamethasone Sodium Phosphate (Decadron) 4 mg STK-MED ONCE .ROUTE ; Start 09/08/21 at 05:49; Stop 09/08/21 at 07:49; Status DC Sevoflurane (Ultane) 90 ml STK-MED ONCE IH ; Start 09/08/21 at 05:49; Stop 09/08/21 at 07:49; Status DC Ketamine HCl (Ketamine) 50 mg STK-MED ONCE .ROUTE ; Start 09/08/21 at 05:49; Stop 09/08/21 at 07:49; Status DC Fentanyl Citrate (Fentanyl 2ml Vial) 100 mcg STK-MED ONCE .ROUTE ; Start 09/08/21 at 05:49; Stop 09/08/21 at 07:49; Status DC Succinylcholine Chloride (Anectine) 200 mg STK-MED ONCE .ROUTE ; Start 09/08/21 at 05:49; Stop 09/08/21 at 07:49; Status DC Remifentanil HCl (Ultiva) 1 mg STK-MED ONCE IV ; Start 09/08/21 at 05:49; Stop 09/08/21 at 07:49; Status DC Midazolam HCl (Versed) 2 mg STK-MED ONCE .ROUTE ; Start 09/08/21 at 06:49; Stop 09/08/21 at 08:50; Status DC Propofol (Diprivan) 200 mg STK-MED ONCE IV ; Start 09/08/21 at 08:21; Stop 09/08/21 at 10:22; Status DC Propofol 50 ml @ As Directed STK-MED ONCE IV ; Start 09/08/21 at 10:34; Stop 09/08/21 at 12:34; Status DC Propofol 50 ml @ As Directed STK-MED ONCE IV ; Start 09/08/21 at 10:34; Stop 09/08/21 at 12:34; Status DC Propofol 50 ml @ As Directed STK-MED ONCE IV ; Start 09/08/21 at 10:34; Stop 09/08/21 at 12:34; Status DC Remifentanil HCl (Ultiva) 1 mg STK-MED ONCE IV ; Start 09/08/21 at 11:22; Stop 09/08/21 at 13:23; Status DC Gelatin (Gelfoam Size 100) 1 each STK-MED ONCE .ROUTE Last administered on 09/08/21at 13:34; Start 09/08/21 at 13:30; Stop 09/08/21 at 13:31; Status DC Thrombin 20,000 unit STK-MED ONCE TP Last administered on 09/08/21at 13:34; Start 09/08/21 at 13:31; Stop 09/08/21 at 13:31; Status DC Phenylephrine HCl (Robert-Synephrine Inj) 10 mg STK-MED ONCE .ROUTE ; Start 09/08/21 at 11:57; Stop 09/08/21 at 13:57; Status DC Propofol 50 ml @ As Directed STK-MED ONCE IV ; Start 09/08/21 at 12:27; Stop 09/08/21 at 14:28; Status DC Albumin Human 500 ml @ As Directed STK-MED ONCE IV ; Start 09/08/21 at 12:57; Stop 09/08/21 at 14:57; Status DC Hydromorphone HCl (Dilaudid) 2 mg STK-MED ONCE .ROUTE ; Start 09/08/21 at 13:05; Stop 09/08/21 at 15:05; Status DC Alprazolam (Xanax) 0.25 mg BID PO Last administered on 09/11/21at 09:06; Start 09/08/21 at 21:00 Atorvastatin Calcium (Lipitor) 20 mg QHS PO Last administered on 09/10/21at 21:26; Start 09/08/21 at 21:00 Lisinopril (Prinivil) 10 mg DAILY PO Last administered on 09/09/21at 08:59; Start 09/09/21 at 09:00 Non-Formulary Medication (Albuterol Sulfate (Ventolin Hfa Inhaler)) 2 puff Q4HRS INH ; Start 09/08/21 at 16:00; Status UNV Fluticasone Propionate (Flonase) 2 spray DAILY NS ; Start 09/09/21 at 09:00 Fentanyl Citrate (Fentanyl 2ml Vial) 50 mcg PRN Q2HR PRN IVP PAIN; Start 09/08/21 at 15:45 Acetaminophen (Tylenol) 650 mg PRN Q6HRS PRN PO MILD PAIN / TEMP > 100.3'F; Start 09/08/21 at 15:45 Al Hydroxide/Mg Hydroxide (Mylanta Plus Xs) 30 ml PRN Q3HRS PRN PO HEARTBURN / GAS; Start 09/08/21 at 15:45 Calcium Carbonate/ Glycine (Tums) 500 mg PRN Q3HRS PRN PO INDIGESTION; Start 09/08/21 at 15:45 Diphenhydramine HCl (Benadryl) 25 mg PRN Q6HRS PRN PO ITCHING; Start 09/08/21 at 15:45 Naloxone HCl (Narcan) 0.1 mg PRN Q2MIN PRN IV SEE COMMENTS; Start 09/08/21 at 15:45 Sodium Chloride (Normal Saline Flush) 3 ml QSHIFT PRN IV AFTER MEDS AND BLOOD DRAWS; Start 09/08/21 at 15:45 Potassium Chloride/Dextrose/ Sod Cl 1,000 ml @ 75 mls/hr [id number] IV Last administered on 09/08/21at 21:35; Start 09/08/21 at 15:45 Oxycodone/ Acetaminophen (Percocet 5/325) 1 tab PRN Q4HRS PRN PO MODERATE PAIN Last administered on 09/10/21at 08:33; Start 09/08/21 at 15:45 Oxycodone/ Acetaminophen (Percocet 5/325) 2 tab PRN Q4HRS PRN PO SEVERE PAIN Last administered on 09/11/21at 09:07; Start 09/08/21 at 15:45 Methocarbamol (Robaxin) 750 mg TID PRN PO MUSCLE SPASMS Last administered on 09/09/21at 17:21; Start 09/08/21 at 15:45 Docusate Sodium (Colace) 100 mg BID PO Last administered on 09/11/21at 09:06; Start 09/08/21 at 21:00 Magnesium Hydroxide (Milk Of Magnesia) 2,400 mg PRN Q12HR PRN PO CONSTIPATION; Start 09/08/21 at 15:45 Ondansetron HCl (Zofran) 4 mg PRN Q6HRS PRN IVP NAUESA, 1ST CHOICE; Start 09/08/21 at 15:45 Fentanyl Citrate (Fentanyl 2ml Vial) 100 mcg STK-MED ONCE .ROUTE ; Start 09/08/21 at 16:10; Stop 09/08/21 at 16:10; Status DC Albuterol Sulfate (Ventolin Neb Soln) 2.5 mg PRN Q4HRS PRN NEB SHORTNESS OF BREATH; Start 09/08/21 at 18:30 Baclofen (Lioresal) 10 mg TID PO Last administered on 09/11/21at 09:05; Start 09/10/21 at 14:00 Gabapentin (Neurontin) 300 mg TID PO Last administered on 09/11/21at 09:06; Start 09/10/21 at 14:00 Magnesium Hydroxide (Milk Of Magnesia) 2,400 mg PRN DAILY PRN PO CONSTIPATION; Start 09/10/21 at 14:15 Bisacodyl (Dulcolax Tab) 5 mg BID PO Last administered on 09/11/21at 09:06; Start 09/10/21 at 14:15 Active Scripts Active Lipitor (Atorvastatin Calcium) 20 Mg Tablet 20 Mg PO QHS Reported Methylprednisolone 4 Mg Tab.ds.pk 4 Mg PO DAILY Ventolin Hfa Inhaler (Albuterol Sulfate) 18 Gm Hfa.aer.ad 2 Puff INH Q4HRS Flonase Allergy Relief (Fluticasone Propionate) 9.9 Ml [place].susp 2 Sprays NS DAILY Lisinopril 10 Mg Tablet 1 Tab PO DAILY Xanax (Alprazolam) 0.25 Mg Tablet 1 Tab PO BID Tylenol (Acetaminophen) 325 Mg Tablet 1-2 Tab PO QID Vitals/I & O Vital Sign - Last 24 Hours 09/10/21 09/10/21 09/10/21 09/10/21 15:00 19:00 20:00 23:00 Temp 98.3 99.0 99.4 98.3 99.0 99.4 Pulse 111 115 74 Resp 20 18 18 B/P (MAP) 125/66 (85) 91/52 (65) 92/56 (68) Pulse Ox 96 97 98 O2 Delivery Room Air Room Air Room Air 09/11/21 09/11/21 09/11/21 09/11/21 07:00 08:00 09:07 10:37 Temp 98.2 98.0 98.2 98.0 Pulse 117 90 Resp 18 18 B/P (MAP) 107/57 (74) 101/61 (74) Pulse Ox 95 95 96 O2 Delivery Room Air Room Air Room Air Room Air O2 Flow Rate 10.0 09/11/21 10:45 Pulse Ox 96 O2 Delivery Room Air O2 Flow Rate 10.0 Intake and Output 09/10/21 09/10/21 09/11/21 15:00 23:00 07:00 Intake Total 250 ml Balance 250 ml Justifications for Admission Other Justification GINNY MONTANO APRN Sep 11, 2021 13:23
[2021-09-11 15:00] VITALS: BP 102/60
--- NOTE | 2021-09-11 17:19 | RAD ---
EXAM: XR CHEST 1V 09/11/2021 12:48 PM CLINICAL INDICATION: Chest pain COMPARISON: None TECHNIQUE: AP upright view of the chest FINDINGS: The heart is normal in size. Lungs are mildly hypoexpanded. There is calcified granuloma i n the right upper lobe. No consolidation, pleural effusion, or pneumothorax. There is a 6 mm scleroti c focus projecting over the right humeral head or glenoid. IMPRESSION: 1. No acute cardiopulmonary abnormality. 2. 6 mm sclerotic focus projecting over the right humeral head or glenoid. This could be a bone lesio n or something external to the patient. Consider dedicated shoulder radiograph to further evaluate. Electronically signed by: Nena Delgado MD (09/11/2021 5:17 PM) [id number]
[2021-09-11] MEDS ORDERED: VANCOMYCIN 2 GM in IV NORMAL SALINE 500ML BAG 500 ML IV ONE (18:00)
[2021-09-11 19:00] VITALS: BP 92/55
[2021-09-11] MEDS: VANCOMYCIN PER PHARMACY MC PRN (19:32)
--- NOTE | 2021-09-11 19:35 | NUR ---
Pharmacy Vancomycin Dosing Note S:Consulted to monitor and dose vancomycin started 09/11/21. O:RATNA SALAS is a 60 year old F with leukocytosis post op . Height: 5 feet, 5 inches Weight: 77.2 kg [place] Body Weight: 57.00 Adjusted Body Weight: 65.08 Dosing Weight: Actual Other Antibiotics: LABS: Last BUN: 13 Last Creatinine: 1 Creatinine Clearance: 60 mL/min Last WBC: 20 Last Procalcitonin: Tmax (past 24 hours): Microbiology: I/O: Drug Levels: Last level: on at Last dose given at Vancomycin Dosing: Loading Dose: 2000 mg x1 Dosing Weight: Actual Target Trough: 10-20 A: Based on: HT, WT AND RENAL FXN P: 1. Begin Vancomycin 1250 mg IV q18h 2. Follow up Trough level on 09/13/21 at 0530 3. Pharmacy will continue to monitor, follow and adjust therapy as needed. FREDRICK GO, [facility], 09/11/21 [id number]
--- NOTE | 2021-09-11 20:13 | CONS ---
DATE OF CONSULTATION: 09/11/2021 INTERNAL MEDICINE CONSULTATION CHIEF COMPLAINT: Postop leukocytosis. HISTORY OF PRESENT ILLNESS: The patient is a pleasant 60-year-old female who had thoracic back surgery yesterday. In particular, they performed a T9 through T12 laminectomy and resected a benign mass. We have been requested for postop medical evaluation and treatment of comorbidities. It should be noted that she does have a leukocytosis of 20,000. PAST MEDICAL HISTORY: Hypertension, colitis, peptic ulcer disease, cholecystectomy. ALLERGIES: PENICILLIN, ASPIRIN, CIPRO, DOXYCYCLINE, LATEX. FAMILY HISTORY: Alzheimer's disease, coronary artery disease and hypertension. SOCIAL HISTORY: She does not drink, smoke or take drugs. 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 She is . MEDICATIONS: Reviewed, please refer to the MRAD. REVIEW OF SYSTEMS: GENERAL: No history of weight change, weakness or fevers. SKIN: No bruising, hair changes or rashes. EYES: No blurred, double or loss of vision. NOSE AND THROAT: No history of nosebleeds, hoarseness or sore throat. HEART: No history of palpitations, chest pain or shortness of breath on exertion. LUNGS: Denies cough, hemoptysis, wheezing or shortness of breath. GASTROINTESTINAL: Denies changes in appetite, nausea, vomiting, diarrhea or constipation. GENITOURINARY: No history of frequency, urgency, hesitancy or nocturia. NEUROLOGIC: Denies history of numbness, tingling, tremor or weakness. PSYCHIATRIC: No history of panic, anxiety or depression. ENDOCRINE: No history of heat or cold intolerance, polyuria or polydipsia. EXTREMITIES: Denies muscle weakness, joint pain, pain on walking or stiffness. PHYSICAL EXAMINATION: VITALS: Within normal limits and are stable. GENERAL: No apparent distress. Alert and oriented. HEENT: Normal cephalic atraumatic, external auditory canals are patent EYES: Extraocular muscles are intact, pupils are equally round and reactive to light and accommodation MUSCULOSKELETAL: Well developed, well nourished, good range of motion ENDOCRINE: No thyromegaly was palpated LYMPHATICS: No cervical chain or axillary nodes were noted HEMATOPOIETIC: No bruising NECK: Supple, no JVD, no thyromegaly was noted. LUNGS: Clear to auscultation in all lung salazar without rhonchi or wheezing. HEART: RRR, S1, S2 present. Peripheral pulses intact, no obvious murmurs were noted. ABDOMEN: Soft, nontender. Positive bowel sounds no organomegaly, normal bowel sounds. EXTREMITIES: Without any cyanosis, clubbing, or edema. Pedal pulses intact, Homans sign is negative. NEUROLOGIC: Normal speech, normal tone. A and O x 3, moves all extremities, no obvious focal deficits. PSYCHIATRIC: Normal affect, normal mood. Stable. SKIN: No ulcerations or rashes, good skin turgor, no jaundice. VASCULAR: Good capillary refill, neurovascular bundle appears to be intact. BACK: She has a clean, dry, intact dressing on the thoracic spine and she also has a back brace on. LABORATORY DATA: Sodium is 135. White count is 20,000, hemoglobin 12.2, platelets 343. ASSESSMENT AND PLAN: Postop leukocytosis. Given her multiple allergies, we will consult Infectious Disease for a second opinion, but I did go ahead and call the pharmacy. We have decided to go ahead and start empiric IV vancomycin for now. Recheck her labs in the morning. Deep venous thrombosis prophylaxis. Full code. Wound care. Thank you very much for allowing us to participate in the care of this nice lady. HADLEY/MARIAH DR: HADLEY/kimi TID: [id number]
[2021-09-11] MEDS: ATORVASTATIN CALCIUM 20 MG TABLET PO SCH (21:50)
[2021-09-11 23:00] VITALS: BP 90/48
[2021-09-12 03:00] VITALS: BP 90/62
[2021-09-12 07:00] VITALS: BP 102/69
[2021-09-12] MEDS: BACLOFEN 10 MG TABLET. PO SCH ×2 (08:32→14:59)
[2021-09-12] MEDS: GABAPENTIN 300 MG CAPSULE. PO SCH ×2 (08:32→14:00)
[2021-09-12] MEDS: DOCUSATE SODIUM 100 MG CAPSULE. PO SCH (08:32)
[2021-09-12] MEDS: ALPRAZolam 0.25 MG TABLET PO SCH (08:32)
[2021-09-12] MEDS: BISACODYL 5 MG TABLET.DR. PO SCH (08:32)
[2021-09-12] MEDS: LISINOPRIL 10 MG TABLET PO SCH (08:34)
[2021-09-12] MEDS: FLUTICASONE 50MCG/NASAL SPRAY 16GM BOTTLE. NS SCH (08:36)
[2021-09-12 08:50] LABS: BASO # 0.1 x10^3/uL (0.0-0.2); BASO % 1 % (0-3); EOS # 0.1 x10^3/uL (0.0-0.7); EOS % 0 % (0-3); HEMATOCRIT 36.3 % (36.0-47.0); HEMOGLOBIN 11.6 g/dL (12.0-15.5); LYMPH # 1.7 x10^3/uL (1.0-4.8); LYMPH % 11 % (24-48); MEAN CORPUSCULAR HEMOGLOBIN 30 pg (25-35); MEAN CORPUSCULAR HGB CONC 32 g/dL (31-37); MEAN CORPUSCULAR VOLUME 93 fL (79-100); MONO # 1.1 x10^3/uL (0.0-1.1); MONO % 7 % (0-9); NEUT # 12.5 x10^3/uL (1.8-7.7); NEUT % 81 % (31-73); PLATELET COUNT 333 x10^3/uL (140-400); RED BLOOD COUNT 3.92 x10^6/uL (3.50-5.40); RED CELL DISTRIBUTION WIDTH 14.3 % (11.5-14.5); WHITE BLOOD COUNT 15.5 x10^3/uL (4.0-11.0)
[2021-09-12 09:05] LABS: CALCIUM 8.7 mg/dL (8.5-10.1); CREATININE 0.8 mg/dL (0.6-1.0); GFR 72.7; POTASSIUM 3.8 mmol/L (3.5-5.1)
--- NOTE | 2021-09-12 10:04 | PDOC ---
PROGRESS NOTES Date of Service DATE: 09/12/21 TIME: 09:56 Subjective Subjective She is having blood tinged nasal discharge since having Covid-19 infection in . Back brace is helping ease her pain and she wants to go home today. Objective Objective Vital Signs Date Time Temp Pulse Resp B/P (MAP) Pulse Ox O2 Delivery O2 Flow Rate FiO2 09/12/21 08:34 81 90/62 09/12/21 07:00 98.2 20 96 Room Air 98.2 09/11/21 10:45 10.0 Intake and Output 09/12/21 07:00 # Voids 9 Physical Exam Physical Exam She is alert,sitting in bedside chair and seems comfortable and had GUAMAN brace on loosely and I have adjusted it's fit and she had dressing to thoracic paraspinal muscles and had dressing in place to thoracic spine and she is independnet with be mobility,transfers and walking with roller walker and chest x-ray revealed sclerotic lesion right shoulder,it might be an artifact as she deos not have any tenderness to palpation over right shoulder or cepitus on ROM. She remains constipated and voiding wll without any dysuria. Appreciate 's help and her WBC count is down to 15,000 this AM. Plan Plan of Jail when medically stable with out patient follow up. Comment Review of Relevant I have reviewed the following items marychuy (where applicable) has been applied. Labs Laboratory Tests Test 09/11/21 10:55 09/12/21 08:25 White Blood Count 20.0 x10^3/uL (4.0-11.0) 15.5 x10^3/uL (4.0-11.0) Red Blood Count 4.08 x10^6/uL (3.50-5.40) 3.92 x10^6/uL (3.50-5.40) Hemoglobin 12.2 g/dL (12.0-15.5) 11.6 g/dL (12.0-15.5) Hematocrit 38.1 % (36.0-47.0) 36.3 % (36.0-47.0) Mean Corpuscular Volume 93 fL (79-100) 93 fL (79-100) Mean Corpuscular Hemoglobin 30 pg (25-35) 30 pg (25-35) Mean Corpuscular Hemoglobin Concent 32 g/dL (31-37) 32 g/dL (31-37) Red Cell Distribution Width 14.6 % (11.5-14.5) 14.3 % (11.5-14.5) Platelet Count 343 x10^3/uL (140-400) 333 x10^3/uL (140-400) Neutrophils (%) (Auto) 79 % (31-73) 81 % (31-73) Lymphocytes (%) (Auto) 12 % (24-48) 11 % (24-48) Monocytes (%) (Auto) 9 % (0-9) 7 % (0-9) Eosinophils (%) (Auto) 0 % (0-3) 0 % (0-3) Basophils (%) (Auto) 1 % (0-3) 1 % (0-3) Neutrophils # (Auto) 15.7 x10^3/uL (1.8-7.7) 12.5 x10^3/uL (1.8-7.7) Lymphocytes # (Auto) 2.3 x10^3/uL (1.0-4.8) 1.7 x10^3/uL (1.0-4.8) Monocytes # (Auto) 1.8 x10^3/uL (0.0-1.1) 1.1 x10^3/uL (0.0-1.1) Eosinophils # (Auto) 0.0 x10^3/uL (0.0-0.7) 0.1 x10^3/uL (0.0-0.7) Basophils # (Auto) 0.1 x10^3/uL (0.0-0.2) 0.1 x10^3/uL (0.0-0.2) Erythrocyte Sedimentation Rate 92 (0-25) Sodium Level 135 mmol/L (136-145) 138 mmol/L (136-145) Potassium Level 4.3 mmol/L (3.5-5.1) 3.8 mmol/L (3.5-5.1) Chloride Level 100 mmol/L (98-107) 102 mmol/L (98-107) Carbon Dioxide Level 24 mmol/L (21-32) 28 mmol/L (21-32) Anion Gap 11 (6-14) 8 (6-14) Blood Urea Nitrogen 13 mg/dL (7-20) 12 mg/dL (7-20) Creatinine 1.0 mg/dL (0.6-1.0) 0.8 mg/dL (0.6-1.0) Estimated GFR (Cockcroft-Gault) 56.2 72.7 Glucose Level 120 mg/dL (70-99) 109 mg/dL (70-99) Calcium Level 9.1 mg/dL (8.5-10.1) 8.7 mg/dL (8.5-10.1) Laboratory Tests Test 09/11/21 10:55 09/12/21 08:25 White Blood Count 20.0 x10^3/uL (4.0-11.0) 15.5 x10^3/uL (4.0-11.0) Red Blood Count 4.08 x10^6/uL (3.50-5.40) 3.92 x10^6/uL (3.50-5.40) Hemoglobin 12.2 g/dL (12.0-15.5) 11.6 g/dL (12.0-15.5) Hematocrit 38.1 % (36.0-47.0) 36.3 % (36.0-47.0) Mean Corpuscular Volume 93 fL (79-100) 93 fL (79-100) Mean Corpuscular Hemoglobin 30 pg (25-35) 30 pg (25-35) Mean Corpuscular Hemoglobin Concent 32 g/dL (31-37) 32 g/dL (31-37) Red Cell Distribution Width 14.6 % (11.5-14.5) 14.3 % (11.5-14.5) Platelet Count 343 x10^3/uL (140-400) 333 x10^3/uL (140-400) Neutrophils (%) (Auto) 79 % (31-73) 81 % (31-73) Lymphocytes (%) (Auto) 12 % (24-48) 11 % (24-48) Monocytes (%) (Auto) 9 % (0-9) 7 % (0-9) Eosinophils (%) (Auto) 0 % (0-3) 0 % (0-3) Basophils (%) (Auto) 1 % (0-3) 1 % (0-3) Neutrophils # (Auto) 15.7 x10^3/uL (1.8-7.7) 12.5 x10^3/uL (1.8-7.7) Lymphocytes # (Auto) 2.3 x10^3/uL (1.0-4.8) 1.7 x10^3/uL (1.0-4.8) Monocytes # (Auto) 1.8 x10^3/uL (0.0-1.1) 1.1 x10^3/uL (0.0-1.1) Eosinophils # (Auto) 0.0 x10^3/uL (0.0-0.7) 0.1 x10^3/uL (0.0-0.7) Basophils # (Auto) 0.1 x10^3/uL (0.0-0.2) 0.1 x10^3/uL (0.0-0.2) Erythrocyte Sedimentation Rate 92 (0-25) Sodium Level 135 mmol/L (136-145) 138 mmol/L (136-145) Potassium Level 4.3 mmol/L (3.5-5.1) 3.8 mmol/L (3.5-5.1) Chloride Level 100 mmol/L (98-107) 102 mmol/L (98-107) Carbon Dioxide Level 24 mmol/L (21-32) 28 mmol/L (21-32) Anion Gap 11 (6-14) 8 (6-14) Blood Urea Nitrogen 13 mg/dL (7-20) 12 mg/dL (7-20) Creatinine 1.0 mg/dL (0.6-1.0) 0.8 mg/dL (0.6-1.0) Estimated GFR (Cockcroft-Gault) 56.2 72.7 Glucose Level 120 mg/dL (70-99) 109 mg/dL (70-99) Calcium Level 9.1 mg/dL (8.5-10.1) 8.7 mg/dL (8.5-10.1) Medications Current Medications Fentanyl Citrate (Fentanyl 2ml Vial) 25 mcg PRN Q5MIN PRN IVP MILD PAIN 1-3; Start 09/08/21 at 06:00; Stop 09/08/21 at 18:00; Status DC Fentanyl Citrate (Fentanyl 2ml Vial) 50 mcg PRN Q5MIN PRN IVP MODERATE PAIN 4-6 Last administered on 09/08/21at 16:33; Start 09/08/21 at 06:00; Stop 09/08/21 at 18:00; Status DC Morphine Sulfate (Morphine Sulfate) 1 mg PRN Q10MIN PRN IVP SEVERE PAIN 7-10; Start 09/08/21 at 06:00; Stop 09/08/21 at 18:00; Status DC Ringer's Solution 1,000 ml @ 30 mls/hr Q24H IV Last administered on 09/08/21at 08:04; Start 09/08/21 at 06:00; Stop 09/08/21 at 17:59; Status DC Hydromorphone HCl (Dilaudid) 0.5 mg PRN Q10MIN PRN IVP SEVERE PAIN 7-10, 2nd CHOICE; Start 09/08/21 at 06:00; Stop 09/08/21 at 18:00; Status DC Prochlorperazine Edisylate (Compazine) 5 mg PACU PRN PRN IVP NAUSEA, MRX1; Start 09/08/21 at 06:00; Stop 09/08/21 at 18:00; Status DC Vancomycin HCl 1 gm/Sodium Chloride 1,000 ml @ 1,000 mls/hr 1X PREOP PRN IRR FOR USE DURING PROCEDURE; Start 09/07/21 at 11:00; Status Cancel Vancomycin HCl 1 gm/Sodium Chloride 1,000 ml @ 1,000 mls/hr 1X PREOP PRN IRR FOR USE DURING PROCEDURE Last administered on 09/08/21at 10:19; Start 09/08/21 at 06:00; Stop 09/08/21 at 15:00; Status DC Vancomycin HCl 1 gm/Sodium Chloride 250 ml @ 250 mls/hr PREOP PRN PRN IV PRIOR TO PROCEDURE; Start 09/08/21 at 06:00; Stop 09/08/21 at 15:00; Status DC Gelatin (Gelfoam Size 100) 1 each STK-MED ONCE .ROUTE Last administered on 09/08/21at 10:19; Start 09/08/21 at 06:34; Stop 09/08/21 at 06:34; Status DC Bupivacaine HCl/ Epinephrine Bitart (Sensorcain-Epi 0.5% Kit) 30 ml STK-MED ONCE .ROUTE Last administered on 09/08/21at 10:19; Start 09/08/21 at 06:34; Stop 09/08/21 at 06:34; Status DC Ketorolac Tromethamine (Toradol Im) 60 mg STK-MED ONCE .ROUTE Last administered on 09/08/21at 10:19; Start 09/08/21 at 06:34; Stop 09/08/21 at 06:34; Status DC Thrombin 20,000 unit STK-MED ONCE TP Last administered on 09/08/21at 10:19; Start 09/08/21 at 06:34; Stop 09/08/21 at 06:35; Status DC Propofol (Diprivan) 200 mg STK-MED ONCE IV ; Start 09/08/21 at 05:49; Stop 09/08/21 at 07:49; Status DC Lidocaine HCl (Lidocaine Pf 2% Vial) 5 ml STK-MED ONCE .ROUTE ; Start 09/08/21 at 05:49; Stop 09/08/21 at 07:49; Status DC Ondansetron HCl (Zofran) 4 mg STK-MED ONCE .ROUTE ; Start 09/08/21 at 05:49; Stop 09/08/21 at 07:49; Status DC Phenylephrine HCl (Robert-Synephrine Inj) 10 mg STK-MED ONCE .ROUTE ; Start 09/08/21 at 05:49; Stop 09/08/21 at 07:49; Status DC Propofol 50 ml @ As Directed STK-MED ONCE IV ; Start 09/08/21 at 05:49; Stop 09/08/21 at 07:49; Status DC Dexamethasone Sodium Phosphate (Decadron) 4 mg STK-MED ONCE .ROUTE ; Start 09/08/21 at 05:49; Stop 09/08/21 at 07:49; Status DC Sevoflurane (Ultane) 90 ml STK-MED ONCE IH ; Start 09/08/21 at 05:49; Stop 09/08/21 at 07:49; Status DC Ketamine HCl (Ketamine) 50 mg STK-MED ONCE .ROUTE ; Start 09/08/21 at 05:49; Stop 09/08/21 at 07:49; Status DC Fentanyl Citrate (Fentanyl 2ml Vial) 100 mcg STK-MED ONCE .ROUTE ; Start 09/08/21 at 05:49; Stop 09/08/21 at 07:49; Status DC Succinylcholine Chloride (Anectine) 200 mg STK-MED ONCE .ROUTE ; Start 09/08/21 at 05:49; Stop 09/08/21 at 07:49; Status DC Remifentanil HCl (Ultiva) 1 mg STK-MED ONCE IV ; Start 09/08/21 at 05:49; Stop 09/08/21 at 07:49; Status DC Midazolam HCl (Versed) 2 mg STK-MED ONCE .ROUTE ; Start 09/08/21 at 06:49; Stop 09/08/21 at 08:50; Status DC Propofol (Diprivan) 200 mg STK-MED ONCE IV ; Start 09/08/21 at 08:21; Stop 09/08/21 at 10:22; Status DC Propofol 50 ml @ As Directed STK-MED ONCE IV ; Start 09/08/21 at 10:34; Stop 09/08/21 at 12:34; Status DC Propofol 50 ml @ As Directed STK-MED ONCE IV ; Start 09/08/21 at 10:34; Stop 09/08/21 at 12:34; Status DC Propofol 50 ml @ As Directed STK-MED ONCE IV ; Start 09/08/21 at 10:34; Stop 09/08/21 at 12:34; Status DC Remifentanil HCl (Ultiva) 1 mg STK-MED ONCE IV ; Start 09/08/21 at 11:22; Stop 09/08/21 at 13:23; Status DC Gelatin (Gelfoam Size 100) 1 each STK-MED ONCE .ROUTE Last administered on 09/08/21at 13:34; Start 09/08/21 at 13:30; Stop 09/08/21 at 13:31; Status DC Thrombin 20,000 unit STK-MED ONCE TP Last administered on 09/08/21at 13:34; Start 09/08/21 at 13:31; Stop 09/08/21 at 13:31; Status DC Phenylephrine HCl (Robert-Synephrine Inj) 10 mg STK-MED ONCE .ROUTE ; Start 09/08/21 at 11:57; Stop 09/08/21 at 13:57; Status DC Propofol 50 ml @ As Directed STK-MED ONCE IV ; Start 09/08/21 at 12:27; Stop 09/08/21 at 14:28; Status DC Albumin Human 500 ml @ As Directed STK-MED ONCE IV ; Start 09/08/21 at 12:57; Stop 09/08/21 at 14:57; Status DC Hydromorphone HCl (Dilaudid) 2 mg STK-MED ONCE .ROUTE ; Start 09/08/21 at 13:05; Stop 09/08/21 at 15:05; Status DC Alprazolam (Xanax) 0.25 mg BID PO Last administered on 09/12/21at 08:32; Start 09/08/21 at 21:00 Atorvastatin Calcium (Lipitor) 20 mg QHS PO Last administered on 09/11/21at 21:50; Start 09/08/21 at 21:00 Lisinopril (Prinivil) 10 mg DAILY PO Last administered on 09/09/21at 08:59; Start 09/09/21 at 09:00 Non-Formulary Medication (Albuterol Sulfate (Ventolin Hfa Inhaler)) 2 puff Q4HRS INH ; Start 09/08/21 at 16:00; Status UNV Fluticasone Propionate (Flonase) 2 spray DAILY NS ; Start 09/09/21 at 09:00 Fentanyl Citrate (Fentanyl 2ml Vial) 50 mcg PRN Q2HR PRN IVP PAIN; Start 09/08/21 at 15:45 Acetaminophen (Tylenol) 650 mg PRN Q6HRS PRN PO MILD PAIN / TEMP > 100.3'F; Start 09/08/21 at 15:45 Al Hydroxide/Mg Hydroxide (Mylanta Plus Xs) 30 ml PRN Q3HRS PRN PO HEARTBURN / GAS; Start 09/08/21 at 15:45 Calcium Carbonate/ Glycine (Tums) 500 mg PRN Q3HRS PRN PO INDIGESTION; Start 09/08/21 at 15:45 Diphenhydramine HCl (Benadryl) 25 mg PRN Q6HRS PRN PO ITCHING; Start 09/08/21 at 15:45 Naloxone HCl (Narcan) 0.1 mg PRN Q2MIN PRN IV SEE COMMENTS; Start 09/08/21 at 15:45 Sodium Chloride (Normal Saline Flush) 3 ml QSHIFT PRN IV AFTER MEDS AND BLOOD DRAWS; Start 09/08/21 at 15:45 Potassium Chloride/Dextrose/ Sod Cl 1,000 ml @ 75 mls/hr [id number] IV Last administered on 09/08/21at 21:35; Start 09/08/21 at 15:45 Oxycodone/ Acetaminophen (Percocet 5/325) 1 tab PRN Q4HRS PRN PO MODERATE PAIN Last administered on 09/11/21at 18:33; Start 09/08/21 at 15:45 Oxycodone/ Acetaminophen (Percocet 5/325) 2 tab PRN Q4HRS PRN PO SEVERE PAIN Last administered on 09/11/21at 09:07; Start 09/08/21 at 15:45 Methocarbamol (Robaxin) 750 mg TID PRN PO MUSCLE SPASMS Last administered on 09/09/21at 17:21; Start 09/08/21 at 15:45 Docusate Sodium (Colace) 100 mg BID PO Last administered on 09/12/21at 08:32; Start 09/08/21 at 21:00 Magnesium Hydroxide (Milk Of Magnesia) 2,400 mg PRN Q12HR PRN PO CONSTIPATION; Start 09/08/21 at 15:45 Ondansetron HCl (Zofran) 4 mg PRN Q6HRS PRN IVP NAUESA, 1ST CHOICE; Start 09/08/21 at 15:45 Fentanyl Citrate (Fentanyl 2ml Vial) 100 mcg STK-MED ONCE .ROUTE ; Start 09/08/21 at 16:10; Stop 09/08/21 at 16:10; Status DC Albuterol Sulfate (Ventolin Neb Soln) 2.5 mg PRN Q4HRS PRN NEB SHORTNESS OF BREATH; Start 09/08/21 at 18:30 Baclofen (Lioresal) 10 mg TID PO Last administered on 09/12/21at 08:32; Start 09/10/21 at 14:00 Gabapentin (Neurontin) 300 mg TID PO Last administered on 09/12/21 08:32; Start 09/10/21 at 14:00 Magnesium Hydroxide (Milk Of Magnesia) 2,400 mg PRN DAILY PRN PO CONSTIPATION; Start 09/10/21 at 14:15 Bisacodyl (Dulcolax Tab) 5 mg BID PO Last administered on 09/12/21at 08:32; Start 09/10/21 at 14:15 Vancomycin HCl (Vanco Per Pharmacy) 1 each PRN DAILY PRN MC SEE COMMENTS Last administered on 09/11/21at 19:32; Start 09/11/21 at 17:30 Vancomycin HCl 2 gm/Sodium Chloride 500 ml @ 250 mls/hr 1X ONCE IV Last administered on 09/11/21at 18:34; Start 09/11/21 at 18:00; Stop 09/11/21 at 19:59; Status DC Vancomycin HCl (Vancomycin Trough Level) 1 each 1X ONCE MC ; Start 09/13/21 at 05:30; Stop 09/13/21 at 05:31 Vancomycin HCl 1.25 gm/Sodium Chloride 250 ml @ 167 mls/hr Q18H IV ; Start 09/12/21 at 12:00 Active Scripts Active Lipitor (Atorvastatin Calcium) 20 Mg Tablet 20 Mg PO QHS Reported Methylprednisolone 4 Mg Tab.ds.pk 4 Mg PO DAILY Ventolin Hfa Inhaler (Albuterol Sulfate) 18 Gm Hfa.aer.ad 2 Puff INH Q4HRS Flonase Allergy Relief (Fluticasone Propionate) 9.9 Ml [place].susp 2 Sprays NS DAILY Lisinopril 10 Mg Tablet 1 Tab PO DAILY Xanax (Alprazolam) 0.25 Mg Tablet 1 Tab PO BID Tylenol (Acetaminophen) 325 Mg Tablet 1-2 Tab PO QID Vitals/I & O Vital Sign - Last 24 Hours 09/11/21 09/11/21 09/11/21 09/11/21 10:37 10:45 15:00 18:33 Temp 98.0 97.9 98.0 97.9 Pulse 90 95 Resp 18 18 B/P (MAP) 101/61 (74) 102/60 (74) Pulse Ox 96 96 97 97 O2 Delivery Room Air Room Air Room Air Room Air O2 Flow Rate 10.0 09/11/21 09/11/21 09/11/21 09/11/21 19:00 20:00 23:00 23:59 Temp 98.9 98.3 98.9 98.3 Pulse 89 88 Resp 18 18 18 B/P (MAP) 92/55 (67) 90/48 (62) Pulse Ox 92 96 O2 Delivery Room Air Room Air Room Air 09/12/21 09/12/21 09/12/21 03:00 07:00 08:34 Temp 98.2 98.2 98.2 98.2 Pulse 81 81 Resp 18 20 B/P (MAP) 90/62 (71) 102/69 (80) 90/62 Pulse Ox 92 96 O2 Delivery Room Air Room Air Justifications for Admission Other Justification SHER PENNY MD Sep 12, 2021 10:04
[2021-09-12] MEDS ORDERED: GABA300C18 PO (11:24)
[2021-09-12] MEDS ORDERED: BACL10TA PO (11:24)
[2021-09-12] MEDS ORDERED: AZIT1PAC PO (11:24)
[2021-09-12] MEDS ORDERED: OXYC1TAB15 PO (11:24)
[2021-09-12 11:29] VITALS: BP 124/67
--- NOTE | 2021-09-12 11:53 | DISCH ---
DISCHARGE INSTRUCTIONS Condition on Discharge Condition on Discharge: Stable Activity After Discharge Activity Instructions for Disc: Activity as tolerated, Avoid exertion Other activity instructions: thoracolumbar brace for comfort Bathing Instructions: Shower-keep dressing dry, No Tub Bath until see Lifting Instructions after Dis: No heavy lifting, No pulling or pushing, Do not lift >10 pounds Driving Instructions after Dis: No driving for 2 weeks Weight Bearing Status after Di: No restrictions Diet after Discharge Diet after Discharge: Cardiac Additional Diet Restrictions: resume home diet Diet Texture: Regular Liquid Texture: Thin Liquid Swallowing Supervision: None needed Wound Incision Care Wound/Incision Care: Ice to area for comfort Other wound/incision instructi: dressing change daily as needed, no direct water pressure Wound Care Equipment: Sutures/raymond Contacting the DRGreg after DC Call your doctor for: Concerns you may have Follow-Up Follow up with: Dr. Escamilla in 2 weeks [phone] JAQUELINE ESCAMILLA MD Sep 12, 2021 11:53
[2021-09-12] MEDS ORDERED: OXYMETAZOLINE 0.05% NASAL SPRAY 30ML BOTTLE. NS SCH (12:00)
[2021-09-12] MEDS ORDERED: VANCOMYCIN 1.25 GM in IV NORMAL SALINE 250ML 250 ML IV SCH (12:00)
[2021-09-12] MEDS: POTASSIUM CL 20MEQ D5-0.45NACL 1,000 ML IV SCH (13:05)
[2021-09-12] MEDS: oxyCODONE/APAP 5/325 1 TAB TABLET PO PRN (15:01)
[2021-09-12 15:26] VITALS: BP 120/73
[2021-09-12] MEDS: VANCOMYCIN PER PHARMACY MC PRN (15:57)
--- NOTE | 2021-09-12 16:43 | RAD ---
Three-view right shoulder radiographs 09/12/2021 CLINICAL HISTORY: Sclerotic lesion seen on right humeral head on chest radiograph. AP internal and external rotation and transscapular digital radiographs right shoulder were obtained. Comparison is made to patient's portable chest radiograph dated 09/11/2021. A somewhat rounded sclerotic areas seen involving the inferior right humeral head which measures appr oximately 1 cm in size. This corresponds to abnormality seen on the patients chest radiograph. It is felt to most likely represent a bone island. No fracture or dislocation of the right shoulder is seen . Mild degenerative changes are seen involving the right glenohumeral joint and right AC joint. A 7 m m calcified granuloma is seen involving the right upper lobe. IMPRESSION: Sclerotic lesion is seen involving the right humeral which is felt to most likely represe nt a bone island. No acute osseous abnormality is seen. Electronically signed by: Zay Zuniga MD (09/12/2021 4:40 PM) [id number]
--- NOTE | 2021-09-13 17:57 | PDOC3 ---
[facility]-Discharge Summary Date of Admission: Date of Admission: Sep 08, 2021 Date of Discharge: Date of Discharge: Sep 12, 2021 Hospital Course: Hospital Course: he patient is a pleasant 60-year-old female who had thoracic back surgery yesterday. In particular, they performed a T9 through T12 laminectomy and resected a benign mass. We have been requested for postop medical evaluation and treatment of comorbidities. It should be noted that she does have a leukocytosis of 20,000. 09/13 Evaluated examined at bedside. Leukocytosis improving. Patient up in chair reports has been ambulating with walker. Will DC home today. Sent with Z-Cruz for concern for sinusitis. Great 30 minutes spent on discharge Disposition: Disposition/Orders: D/C to Home Activity: Activity: Resume previous activity Diet: Diet: Regular Medications: Home Meds Active Scripts Azithromycin (ZITHROMAX PACKET) 1 Gm Packet, 1 PACKET PO ONCE PRN for sinus infection, #1 PACKET Prov:KENDALL LANDON MD 09/12/21 Gabapentin (GABAPENTIN) 300 Mg Capsule, 300 MG PO TID for neuropathic pain for 10 Days, #30 CAP Prov:KENDALL LANDON MD 09/12/21 Oxycodone/Apap 5-325 (PERCOCET 5-325 MG TABLET ) 1 Each Tablet, 1 TAB PO PRN Q4HRS PRN for MODERATE PAIN for 10 Days, #20 TAB Prov:KENDALL LANDON MD 09/12/21 Baclofen (BACLOFEN) 10 Mg Tablet, 10 MG PO TID for back pain for 14 Days, #42 TAB Prov:KENDALL LANDON MD 09/12/21 Atorvastatin Calcium (LIPITOR) 20 Mg Tablet, 20 MG PO QHS, #30 1 Refill Prov:GALILEO HOLLIDAY MD 05/12/15 Reported Medications Albuterol Sulfate (VENTOLIN HFA INHALER) 18 Gm Hfa.aer.ad, 2 PUFF INH Q4HRS for FOR ASTHMA, EACH 0 Refills 09/04/21 Fluticasone Propionate (Flonase Allergy Relief) 9.9 Ml [place].susp, 2 SPRAYS NS DAILY for allergies, ML 05/20/21 Lisinopril (LISINOPRIL) 10 Mg Tablet, 1 TAB PO DAILY, #30 TAB 5 Refills 05/11/15 Alprazolam (XANAX) 0.25 Mg Tablet, 1 TAB PO BID, #60 TAB 05/11/15 Acetaminophen (TYLENOL) 325 Mg Tablet, 1-2 TAB PO QID, #60 TAB 2 Refills 05/11/15 Discontinued Reported Medications Methylprednisolone (METHYLPREDNISOLONE) 4 Mg Tab.ds.pk, 4 MG PO DAILY for , TAB 09/04/21 Scheduled Acetaminophen (Tylenol), 1-2 TAB PO QID, (Reported) Albuterol Sulfate (Ventolin Hfa Inhaler), 2 PUFF INH Q4HRS, (Reported) Alprazolam (Xanax), 1 TAB PO BID, (Reported) Atorvastatin Calcium (Lipitor), 20 MG PO QHS Baclofen (Baclofen), 10 MG PO TID Fluticasone Propionate (Flonase Allergy Relief), 2 SPRAYS NS DAILY, (Reported) Gabapentin (Gabapentin), 300 MG PO TID Lisinopril (Lisinopril), 1 TAB PO DAILY, (Reported) Scheduled PRN Azithromycin (Zithromax Packet), 1 PACKET PO ONCE PRN for sinus infection Oxycodone/Apap 5-325 (Percocet 5-325 Mg Tablet ), 1 TAB PO PRN Q4HRS PRN for MODERATE PAIN Discontinued Medications Methylprednisolone (Methylprednisolone), 4 MG PO DAILY, (Reported) Justicifation of Admission Dx: Justifications for Admission: Justification of Admission Dx: Yes (t 11 mass) KENDALL LANDON MD Sep 13, 2021 17:57
--- NOTE | 2021-09-14 09:11 | PATHOLOGY ---
[facility] Accession Number: [id number] . 01 Material submitted: . PART A: back - SPINAL CORD MASS-FS. Modifiers: SPINAL CORD, T9-12 PART B: vertebral column - THORACIC DECOMPRESSION. Modifiers: THORACIC PART C: back - SPINAL CORD MASS. Modifiers: SPINAL CORD, T11 . 01 Clinical history: . 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 02 Frozen section diagnosis: . INTRAOPERATIVE CONSULTATION WITH FROZEN SECTION: FSA1. 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 . The results are reported to Dr. Irvin in the operating room. (JPM:daniela; 09/08/2021) . FROZEN SECTION GROSS DESCRIPTION: The specimen is received fresh for intraoperative consultation and is designated "spinal cord mass". This consists of a segment of dark red hemorrhagic tissue measuring up to 1.1 cm in greatest dimension. There is also a small nodular segment of starr tissue measuring 1-2 mm in greatest dimension. The larger segment is bisected. The cut surface is focally reddened and spongy. All is submitted for frozen section as FSA1. The tissue remaining from frozen section is submitted for permanent sections as A1. (JPM:daniela; 09/08/2021) . Frozen section performed at [facility], [address] [place] [address], [place] [id number] [place] [address]/[facility] . 02 Diagnosis: A. Intradural mass biopsy: - Schwannoma. See comment. . B. Segments of fibrocartilaginous, adipose, and skeletal muscle tissue and bone, thoracic decompression: - Degenerative changes of fibrocartilaginous tissue. . C. Intradural mass excision: - Schwannoma. See comment. LBQ 09/14/2021 0825 Local . 02 Comment: Sections of the intradural mass biopsy and excision appear similar and reveal a spindle cell neoplasm. The tumor cells have an interlacing and whorled fascicular arrangement. The tumor cells are elongate and have indistinct amounts of fibrillar cytoplasm. The tumor cells possess elongate tapered nuclei. Most areas of the tumor are compact and show focal nuclear palisading (Verocay bodies). There are focal loosely cellular areas of the tumor. Tumor cells focally show degenerative nuclear atypia. The tumor focally contains thick walled blood vessels. A properly controlled immunoperoxidase stain for S-100 is obtained and yields the following results: . S100 (C1): Tumor cells positive . The morphologic and immunophenotypic findings are supportive of the diagnosis of Schwannoma. Results discussed with Dr. Irvin on 09/08/21. (JPM/db; 09/10/2021) . 02 Electronically signed: . Paul Jay MD, Pathologist NPI- [id number] . 01 Gross description: . A. SEE FROZEN SECTION FOR GROSS DESCRIPTION . B. The specimen is received in formalin, labeled "Aleisha Samantha, thoracic decompression". Received is a large amount of pink-starr fibrous tissue admixed with gritty fragments of bone measuring 7.2 x 7.0 x 0.7 cm in aggregate dimensions. The specimen is submitted representatively in cassette B1, following decalcification. . C. The specimen is received in formalin, labeled "Aleisha Samantha, spinal cord mass". Received is a segment of jeffries-brown tissue measuring 3.0 x 2.1 x 1.1 cm in greatest dimensions. The specimen is submitted entirely in cassettes C1 through C3. (CAA; 09/09/2021) QAC/QTP 09/10/2021 1509 Local . 02 Pathologist provided ICD-10: D36.17 . 02 CPT . 573341, 915244, 642288, 411966, [id number] Specimen Comment: A courtesy copy of this report has been sent to [phone] Specimen Comment: [id number] Specimen Comment: Report sent to / DR PRESTON Performed at: 01 [facility] [address], [place], [place] [id number] MD Grabiel Gonzales MD Phone: [phone] Performed at: 02 [facility] [place] [address] [place], [place] [id number] MD Paul Jay MD Phone: [phone]
== END 2021-09-12 15:40 | disposition home or self-care (01) | DRG 519 ==
LOC: OPSVCIP 07:27 → 4 NORTH 18:23
PROVIDERS: ADMIT Neurological Surgery; ATTEND Neurological Surgery
PROC: 4A11X4G Monitoring of Peripheral Nervous Electrical Activity, Intraoperative, External Approach (ICD-10-PCS; 2021-09-08)
PROC: 0RB90ZZ Excision of Thoracic Vertebral Disc, Open Approach (ICD-10-PCS; principal; 2021-09-08 08:30)
DX: D36.10 Benign neoplasm of peripheral nerves and autonomic nervous system, unspecified (principal); G95.20 Unspecified cord compression; M51.36 Other intervertebral disc degeneration, lumbar region; G57.10 Meralgia paresthetica, unspecified lower limb; I10 Essential (primary) hypertension; K52.9 Noninfective gastroenteritis and colitis, unspecified; K59.00 Constipation, unspecified; R32 Unspecified urinary incontinence; Z82.0 Family history of epilepsy and other diseases of the nervous system; Z82.49 Family history of ischemic heart disease and other diseases of the circulatory system; Z86.16 Personal history of COVID-19; Z87.11 Personal history of peptic ulcer disease; Z87.891 Personal history of nicotine dependence; Z90.49 Acquired absence of other specified parts of digestive tract; D36.14 Benign neoplasm of peripheral nerves and autonomic nervous system of thorax; Z88.0 Allergy status to penicillin; Z88.8 Allergy status to other drugs, medicaments and biological substances; Z91.040 Latex allergy status
CPT/HCPCS: 36415; 71045; 73030; 76000; 80048; 85025; 85651; 86850; 86900; 86901; 87086; 88304; 88307; 88311; 88331; A4222; A4344; A4357; A4364; A4452; A4556; A4930; A6254; A6258; J0330; J1100; J1170; J1885; J2250; J2370; J2405; J2704; J3010; J3370; J3480; J3490; J7030; J7040; J7050; J7120; P9045; 97110-GP; 97116-GP; 97530-GP; 97535-GO; G0378